=== PATIENT | female | born 1980 | race Two or more races ===

== ENCOUNTER 2021-02-26 14:22 | Emergency (ER) | payer OTHER, SELFPAY ==
--- NOTE | ~2021-02-26 | XR_ITS ---
EXAMINATION: XR CHEST CLINICAL INFORMATION: Covid positive. Shortness of breath. COMPARISON: None TECHNIQUE: Frontal view of the chest was obtained. FINDINGS: The lungs are hyperexpanded and clear of acute process. The heart size and pulmonary vascularity is normal. No gross bony abnormality seen. XR/XR chest 1V IMPRESSION: Unremarkable chest exam.
--- NOTE | ~2021-02-26 | CT_ITS ---
EXAMINATION: CT ANGIOGRAM OF THE CHEST WITH AND WITHOUT CONTRAST (CT PULMONARY ANGIOGRAM FOR PE) CLINICAL INFORMATION: Reason for Exam covid pneumonia? PE? COMPARISON: None TECHNIQUE: Prior to contrast administration, noncontrast localization images were obtained. Subsequently, multidetector volumetric imaging was performed from the thoracic inlet to below the diaphragms following the administration of 71 mL Omnipaque 350 intravenous contrast. No contrast reaction reported Sagittal, coronal, and MIP oblique sagittal reformatted images were obtained on the CT workstation, uploaded to PACS, and reviewed. This CT examination was performed using dose optimization techniques as appropriate, variously including the following: *Automated exposure control *Adjustment of mA and/or kV according to patient size (this includes techniques or standardized protocols for targeted exams where dose is matched to indication/reason for exam; i.e. extremities or head) *Use of iterative reconstruction technique Total exam dose-length product 517 mGy-cm FINDINGS: QUALITY OF STUDY/CONTRAST BOLUS: Satisfactory. PULMONARY ARTERIES: No central or segmental pulmonary emboli. THORACIC AORTA: No aneurysm or dissection. LUNG: Multiple multifocal groundglass opacities are seen scattered throughout the lungs. No solid pulmonary masses are seen. PLEURA: No pleural effusion or pneumothorax. MEDIASTINUM: Normal heart size. No pericardial effusion. Small anterior mediastinal and hilar lymph nodes are present but there is no hilar or mediastinal lymphadenopathy. No evidence of septal bowing or right heart strain. CHEST WALL/AXILLA: No axillary or internal mammary lymphadenopathy. OSSEOUS STRUCTURES: No acute or suspicious osseous abnormality. UPPER ABDOMEN: No reflux of contrast into the hepatic veins to suggest elevated right heart pressures. CT/CT angio chest PE protocol IMPRESSION: 1. No evidence of pulmonary emboli. 2. Commonly reported imaging features of Covid 19 or viral pneumonia are present with multifocal groundglass infiltrates. Other processes such as influenza pneumonia or organizing pneumonia, as can be seen with drug toxicity and connective tissue disease, can cause a similar imaging pattern. VTE: negative
[2021-02-26 14:45] VITALS: BP 133/78; PULSE 117; RESP 20; TEMP 37.6; O2SAT 95; BMI 38.8
--- NOTE | 2021-02-26 15:12 | ECG_ITS ---
Test Reason : SOB Blood Pressure : / mmHG Vent. Rate : 108 BPM Atrial Rate : 108 BPM P-R Int : 144 ms QRS Dur : 084 ms QT Int : 328 ms P-R-T Axes : 037 029 000 degrees QTc Int : 439 ms Sinus tachycardia Cannot rule out Anterior infarct , age undetermined Abnormal ECG No previous ECGs available Referred By: Alfa Gomez Electronically Signed By:Robin Abreu
--- NOTE | 2021-02-26 15:18 | ED.SOB ---
HPI - SOB/Dyspnea General Chief Complaint: Dyspnea Stated Complaint: covid+ diff breathing Time Seen by Provider: 02/26/21 14:50 Source: patient Mode of arrival: ambulatory Limitations: no limitations History of Present Illness HPI Narrative: Patient presents to ED for shortness of breath. Patient recently diagnosed with COVID this past andn the past 3 days presenting with shortness of breath on exertion, diarrhea, coughing, fever, and chills. . Patient states no swelling of lower extremity, calf pain, or coughing up blood. Related Data Previous Rx's Medication Instructions Recorded benzonatate [Tessalon Perles] 100 mg PO TID PRN #15 cap 02/26/21 oxycodone-acetaminophen [Percocet] 1 tab PO TID PRN #9 tab 02/26/21 Allergies Allergy/AdvReac Type Severity Reaction Status Date / Time No Known Allergies Allergy Unverified 07/27/20 16:42 Review of Systems Review of Systems: Yes all other systems are reviewed and are negative Constitutional: Constitutional: Reports as per HPI and Reports no additional constitutional complaints Eyes: Eyes: Reports as per HPI and Reports no additional eye complaints ENT: Reports system reviewed and no additional complaints, except as documented and Reports as per HPI Cardiovascular: Cardiovascular: Reports as per HPI, Reports no additional cardiovascular complaints, Reports chest pain and Reports dyspnea Respiratory: Respiratory: Reports as per HPI, Reports no additional respiratory complaints and Reports dyspnea Gastrointestinal: Gastrointestinal: Reports as per HPI and Reports no additional gastrointestinal complaints Genitourinary: Genitourinary: Reports no additional female genitourinary complaints and Reports as per HPI Musculoskeletal: Musculoskeletal: Reports no additional musculoskeletal complaints and Reports as per HPI Neurologic: Reports system reviewed and no additional complaints, except as documented and Reports as per HPI [facility] Past Medical History Medical History (Updated 02/26/21 @ 18:40 by ЕЛЕНА Randhawa) No known health problems Social History Social History Alcohol intake: current Alcohol intake frequency: holidays/special occasions only Smoking Status: Never smoker Use of substances other than those prescribed or required for medical reasons: No Advance Directives: No Advance Directives Information Provided: No Physical Exam Vital Signs: Vital Signs: Last Vital Signs Temp 99.7 F 02/26/21 14:45 Pulse 107 H 02/26/21 16:10 Resp 16 02/26/21 16:10 BP 142/94 H 02/26/21 16:10 Pulse Ox 97 02/26/21 16:10 Body Mass Index 38.8 Const: General: cooperative, healthy appearing, comfortable, no acute distress, well developed, alert, awake and Physically active Orientation/consciousness: patient oriented x3 HENMT: Head: Yes normal to inspection, Yes No palpable skull fracture present, Yes normocephalic, Yes atraumatic and No abrasion Eyes: General: appearance normal, both eyes and all related structures Neck: Neck: Yes normal visual inspection, Yes full ROM, Yes no lymphadenopathy, Yes no meningeal signs, Yes trachea midline, Yes supple and No tender Chest: Chest palpation & inspection: normal inspection of the chest and normal palpation of entire chest wall Resp: Effort & Inspection: normal respiratory effort and able to speak in complete sentences Auscultation: clear to auscultation bilaterally Cardio: Jugular venous distension: no JVD Heart sounds: S1 normal heart sound present and S2 normal heart sound present GI: Inspection: Yes normal to inspection and No abdominal wall ecchymosis Palpation (GI): Soft to palpation, not firm, nontender, no guarding and not rigid : General: No CVA tenderness and Yes no CVA tenderness Back/Spine/Pelvis: Back: no CVA tenderness, No CVA tenderness and No back tenderness Skin: General skin exam: no rashes or lesions noted and elasticity normal Neuro: General: patient oriented x3, no meningeal signs and CN's II-XI intact bilaterally Cranial nerves: Yes CN's II-XII intact bilaterally Extrem: Other: Lower extremity negative for calf pain, swelling, redness for General: Yes normal to inspection and Yes full ROM Psych: Appearance: grossly normal, well kempt and not disheveled Course Course Course Narrative: Patient will have medical evaluation which included lab work troponin and D-dimer to make sure she is not risk of any COVID myocarditis, CA, or PE. Reevaluation(s) Reevaluation #1: Patient's troponin negative after having shortness of breath for 3 days with other viral constitutional symptoms.. Patient's BNP negative. On oxygen saturation ambulation trial as per tech patient's O2 saturation was 95%. He states patient informed the main complaint was the cough. Patient's D-dimer elevated will send for CT to rule out COVID PE. Chest x-ray no pneumonia. EKG shows sinus tach. Albuterol inhaler pump given for patient. Reevaluation #2: Patient is not in any distress. Awaiting chest CT results. Signed out NUTRITION DIRECTOR Marissa MDM - SOB/Dyspnea MDM Narrative Medical decision making narrative: COVID Lab Data Result diagrams: 02/26/21 16:02 02/26/21 16:02 Labs: Lab Results 02/26/21 02/26/21 02/26/21 Range/Units 16:02 16:02 16:02 WBC 5.7 (4.8-10.8) X10*3/uL RBC 5.20 (4.20-5.50) X10*6/uL Hgb 14.5 (12.0-16.0) g/dl Hct 44.9 (37-47) % MCV 86.3 (80-98) fL MCH 27.9 (27.0-33.0) pg MCHC 32.3 (31.0-35.0) g/dl RDW 12.7 (11.0-16.0) % Plt Count 258 (160-400) X10*3/uL MPV 9.7 (9.4-12.3) fL Immature Gran % (Auto) 0.3 (0.0-0.4) % Neut % (Auto) 69.7 (45-73) % Lymph % (Auto) 22.7 (20-40) % [place] % (Auto) 7.3 (2-11) % Eos % (Auto) 0.0 (0-4) % Baso % (Auto) 0.0 (0-2) % Lymph # (Auto) 1.3 (1.2-4.9) X10*3/uL [place] # (Auto) 0.4 (0.1-1.2) X10*3/uL Eos # (Auto) 0.0 (0.0-0.4) X10*3/uL Baso # (Auto) 0.0 (0.0-0.2) X10*3/uL Abs Immat Gran (auto) 0.02 (0.00-0.03) X10*3/uL Absolute Neuts (auto) 4.0 (2.0-8.3) X10*3/uL Absolute Nucleated RBC 0.000 (0.0-0.012) X10*3/uL Nucleated RBC % (auto) 0.0 (0.0-0.2) /100WBC PT 15.2 H (10.8-13.0) SEC INR 1.3 H (0.9-1.1) APTT 30.4 (24.1-38.0) SEC D-Dimer 283 NG/ML Sodium (135-145) mmol/L Potassium (3.3-5.1) mmol/L Chloride (96-108) mmol/L Carbon Dioxide (22-29) mmol/L Anion Gap (12-20) BUN (9-16) mg/dL Creatinine (0.5-1.4) mg/dL Estim Creat Clear Calc Estimated GFR Random Glucose (60-115) mg/dL Calcium (8.4-10.2) mg/dL Ferritin (10-122) ng/mL Total Bilirubin (0.0-1.0) mg/dL AST (5-31) U/L ALT (0-31) U/L Alkaline Phosphatase (39-117) U/L Lactate Dehydrogenase (122-220) U/L Troponin I High Sens (<3.5-17.0) ng/L B-Natriuretic Peptide (<100) pg/mL Total Protein (6.5-8.0) g/dL Albumin (3.5-5.0) g/dL Procalcitonin ng/mL Beta HCG, Quant mIU/mL Coronavirus (PCR) POSITIVE A (Negative) Influenza Type A (PCR) NEGATIVE (Negative) Influenza Type B (PCR) NEGATIVE (Negative) RSV RNA Qual (PCR) NEGATIVE (Negative) 02/26/21 02/26/21 02/26/21 Range/Units 16:02 16:02 16:02 WBC (4.8-10.8) X10*3/uL RBC (4.20-5.50) X10*6/uL Hgb (12.0-16.0) g/dl Hct (37-47) % MCV (80-98) fL MCH (27.0-33.0) pg MCHC (31.0-35.0) g/dl RDW (11.0-16.0) % Plt Count (160-400) X10*3/uL MPV (9.4-12.3) fL Immature Gran % (Auto) (0.0-0.4) % Neut % (Auto) (45-73) % Lymph % (Auto) (20-40) % [place] % (Auto) (2-11) % Eos % (Auto) (0-4) % Baso % (Auto) (0-2) % Lymph # (Auto) (1.2-4.9) X10*3/uL [place] # (Auto) (0.1-1.2) X10*3/uL Eos # (Auto) (0.0-0.4) X10*3/uL Baso # (Auto) (0.0-0.2) X10*3/uL Abs Immat Gran (auto) (0.00-0.03) X10*3/uL Absolute Neuts (auto) (2.0-8.3) X10*3/uL Absolute Nucleated RBC (0.0-0.012) X10*3/uL Nucleated RBC % (auto) (0.0-0.2) /100WBC PT (10.8-13.0) SEC INR (0.9-1.1) APTT (24.1-38.0) SEC D-Dimer NG/ML Sodium 135 (135-145) mmol/L Potassium 3.7 (3.3-5.1) mmol/L Chloride 102 (96-108) mmol/L Carbon Dioxide 23 (22-29) mmol/L Anion Gap 14 (12-20) BUN 6 L (9-16) mg/dL Creatinine 0.84 (0.5-1.4) mg/dL Estim Creat Clear Calc 116.3 Estimated GFR > 60 Random Glucose 100 (60-115) mg/dL Calcium 8.6 (8.4-10.2) mg/dL Ferritin 105 (10-122) ng/mL Total Bilirubin 0.6 (0.0-1.0) mg/dL AST 28 (5-31) U/L ALT 24 (0-31) U/L Alkaline Phosphatase 73 (39-117) U/L Lactate Dehydrogenase 238 H (122-220) U/L Troponin I High Sens < 3.5 (<3.5-17.0) ng/L B-Natriuretic Peptide < 10 (<100) pg/mL Total Protein 8.4 H (6.5-8.0) g/dL Albumin 4.4 (3.5-5.0) g/dL Procalcitonin ng/mL Beta HCG, Quant < 2 mIU/mL Coronavirus (PCR) (Negative) Influenza Type A (PCR) (Negative) Influenza Type B (PCR) (Negative) RSV RNA Qual (PCR) (Negative) 02/26/21 Range/Units 16:02 WBC (4.8-10.8) X10*3/uL RBC (4.20-5.50) X10*6/uL Hgb (12.0-16.0) g/dl Hct (37-47) % MCV (80-98) fL MCH (27.0-33.0) pg MCHC (31.0-35.0) g/dl RDW (11.0-16.0) % Plt Count (160-400) X10*3/uL MPV (9.4-12.3) fL Immature Gran % (Auto) (0.0-0.4) % Neut % (Auto) (45-73) % Lymph % (Auto) (20-40) % [place] % (Auto) (2-11) % Eos % (Auto) (0-4) % Baso % (Auto) (0-2) % Lymph # (Auto) (1.2-4.9) X10*3/uL [place] # (Auto) (0.1-1.2) X10*3/uL Eos # (Auto) (0.0-0.4) X10*3/uL Baso # (Auto) (0.0-0.2) X10*3/uL Abs Immat Gran (auto) (0.00-0.03) X10*3/uL Absolute Neuts (auto) (2.0-8.3) X10*3/uL Absolute Nucleated RBC (0.0-0.012) X10*3/uL Nucleated RBC % (auto) (0.0-0.2) /100WBC PT (10.8-13.0) SEC INR (0.9-1.1) APTT (24.1-38.0) SEC D-Dimer NG/ML Sodium (135-145) mmol/L Potassium (3.3-5.1) mmol/L Chloride (96-108) mmol/L Carbon Dioxide (22-29) mmol/L Anion Gap (12-20) BUN (9-16) mg/dL Creatinine (0.5-1.4) mg/dL Estim Creat Clear Calc Estimated GFR Random Glucose (60-115) mg/dL Calcium (8.4-10.2) mg/dL Ferritin (10-122) ng/mL Total Bilirubin (0.0-1.0) mg/dL AST (5-31) U/L ALT (0-31) U/L Alkaline Phosphatase (39-117) U/L Lactate Dehydrogenase (122-220) U/L Troponin I High Sens (<3.5-17.0) ng/L B-Natriuretic Peptide (<100) pg/mL Total Protein (6.5-8.0) g/dL Albumin (3.5-5.0) g/dL Procalcitonin 0.02 ng/mL Beta HCG, Quant mIU/mL Coronavirus (PCR) (Negative) Influenza Type A (PCR) (Negative) Influenza Type B (PCR) (Negative) RSV RNA Qual (PCR) (Negative) ECG Data Interpretation: Sinus tachycardia. Negative STEMI. Ventricular rate 108. Pr interval 144. QRS 84. QTC 439. Discharge Plan Discharge Clinical Impression: COVID-19 Patient Disposition: Home, Self-Care Instructions: COVID-19 (Coronavirus Disease 2019) (ED) Additional Instructions: Return to the ED immediately for chest pain, shortness of breath, swelling of lower extremities, coughing up blood, calf pain, weakness, or any other concerning symptoms. Continue using albuterol inhaler given to you by nurse 2 puffs every 4-6 hours as needed. Prescriptions: New benzonatate [Tessalon Perles] 100 mg capsule 100 mg PO TID PRN (Reason: cough) Qty: 15 RF: 0 oxycodone-acetaminophen [Percocet] 5-325 mg tablet 1 tab PO TID PRN (Reason: cough) Qty: 9 RF: 0 Referrals: Nirmal Borjas MD [Primary Care Provider] - 2 days (COVID) Stand Alone Forms: Work/School Release
[2021-02-26] MEDS: 0.9 % Sodium Chloride 1,000 ML 999 ML IV (16:07)
[2021-02-26 16:10] VITALS: BP 142/94; PULSE 107; RESP 16; O2SAT 97
[2021-02-26 16:10] LABS: MANUAL DIFF FLAG NO
[2021-02-26 16:17] LABS: Hematocrit 44.9 % (37-47); Hemoglobin 14.5 g/dl (12.0-16.0); Imm Gran Abs Auto 0.02 X10*3/uL (0.00-0.03); Imm Gran Pct Auto 0.3 % (0.0-0.4); Lymphocytes Absolute Auto 1.3 X10*3/uL (1.2-4.9); Lymphocytes Percent Auto 22.7 % (20-40); Mean Corpuscular HGB Conc 32.3 g/dl (31.0-35.0); Mean Corpuscular Hemoglobin 27.9 pg (27.0-33.0); Mean Corpuscular Volume 86.3 fL (80-98); Mean Platelet Volume 9.7 fL (9.4-12.3); Monocytes Absolute Auto 0.4 X10*3/uL (0.1-1.2); Monocytes Percent Auto 7.3 % (2-11); Neutrophils Percent Auto 69.7 % (45-73); Platelet Count 258 X10*3/uL (160-400); Red Cell Distribution Width 12.7 % (11.0-16.0); White Blood Count 5.7 X10*3/uL (4.8-10.8)
[2021-02-26 16:19] LABS: INTERNATIONAL NORM RATIO 1.3 (0.9-1.1); Prothrombin Time 15.2 SEC (10.8-13.0)
[2021-02-26 16:22] LABS: D Dimer 283 NG/ML; Partial Thromboplastin Time 30.4 SEC (24.1-38.0)
[2021-02-26 16:35] LABS: Lactate Dehydrogenase 238 U/L (122-220)
[2021-02-26 16:40] LABS: Alanine Aminotransferase 24 U/L (0-31); Albumin Level 4.4 g/dL (3.5-5.0); Alkaline Phosphatase 73 U/L (39-117); Anion Gap 14 (12-20); Aspartate Amino Transferase 28 U/L (5-31); Bilirubin Total 0.6 mg/dL (0.0-1.0); Blood Urea Nitrogen 6 mg/dL (9-16); Calcium 8.6 mg/dL (8.4-10.2); Carbon Dioxide 23 mmol/L (22-29); Chloride 102 mmol/L (96-108); Creatinine Clr Calc Pharmacy 116.3; Estimated Glomerular Filt Rate > 60; Glucose Random 100 mg/dL (60-115); Potassium 3.7 mmol/L (3.3-5.1); Sodium 135 mmol/L (135-145); Total Protein 8.4 g/dL (6.5-8.0)
[2021-02-26 16:46] LABS: B Type Natriuretic Peptide < 10 pg/mL (<100); Troponin-I High Sensitivity < 3.5 ng/L (<3.5-17.0)
[2021-02-26 16:56] LABS: Ferritin 105 ng/mL (10-122)
[2021-02-26 16:57] LABS: Procalcitonin 0.02 ng/mL
[2021-02-26 16:58] LABS: Influenza A PCR NEGATIVE (Negative); Influenza B PCR NEGATIVE (Negative); Resp Syncy Virus RNA Qual PCR NEGATIVE (Negative); SARS COV2 PCR INHOUSE POSITIVE (Negative)
[2021-02-26 17:16] LABS: HCG Quantitative < 2 mIU/mL
[2021-02-26] MEDS: Albuterol Sulfate 90 MCG 8 GM INHALER 4 PUFF INHALE (17:46)
[2021-02-26] MEDS: guaiFEN/Codeine SF 200/20/10ML 10 ML LIQUID PO (17:46)
[2021-02-26] MEDS: iohexoL 350 MG/ML 100 ML INFUS..BTL IV (19:25)
[2021-02-26 21:30] VITALS: BP 135/86; PULSE 99; RESP 18; O2SAT 97
== END 2021-02-26 21:51 | disposition home or self-care (01) ==
PROVIDERS: Physician Assistant; Emergency Provider Emergency Medicine; PCP Internal Medicine
DX: U07.1 COVID-19 (principal); R06.00 Dyspnea, unspecified; Z79.899 Other long term (current) drug therapy
CPT/HCPCS: 0241U; 36415; 71045; 71275; 80053; 82728; 83615; 83880; 84145; 84484; 84702; 85025; 85379; 85610; 85730; 93005; 96360; 99285; Q9967

== ENCOUNTER 2021-03-01 13:55 | Inpatient (IN) | payer OTHER, SELFPAY ==
--- NOTE | ~2021-03-01 | XR_ITS ---
EXAMINATION: XR CHEST CLINICAL INFORMATION: Covid Positive. Evaluate for pneumonia COMPARISON: CTA chest 02/26/2021 TECHNIQUE: Frontal view of the chest was obtained. FINDINGS: The lungs are hypoexpanded expanded with bilateral parahilar patchy opacities likely interstitial pneumonitis or developing infiltrates. These are new findings compared to previous study 02/26/2021 XR/XR chest 1V IMPRESSION: Hypoexpanded lungs with diffuse bilateral parahilar patchy opacities likely interstitial pneumonitis or developing infiltrates.
[2021-03-01 14:07] VITALS: BP 142/72; PULSE 106; RESP 18; TEMP 37.7; O2SAT 95; BMI 40.3
--- NOTE | 2021-03-01 14:18 | ED.GENADULT ---
HPI - General Adult General Chief complaint: Dyspnea Stated complaint: diff breathing - covid+ Time Seen by Provider: 03/01/21 14:10 Related Data Previous Rx's Medication Instructions Recorded benzonatate [Tessalon Perles] 100 mg PO TID PRN #15 cap 02/26/21 oxycodone-acetaminophen [Percocet] 1 tab PO TID PRN #9 tab 02/26/21 Allergies Allergy/AdvReac Type Severity Reaction Status Date / Time No Known Allergies Allergy Unverified 07/27/20 16:42 [facility] Past Medical History Medical History (Updated 02/26/21 @ 18:40 by ЕЛЕНА Randhawa) No known health problems Social History Social History Alcohol intake: current Alcohol intake frequency: holidays/special occasions only Smoking Status: Never smoker Physical Exam Vital Signs: Vital Signs: Last Vital Signs Temp 99.9 F 03/01/21 14:07 Pulse 106 H 03/01/21 14:07 Resp 18 03/01/21 14:07 BP 142/72 H 03/01/21 14:07 Pulse Ox 95 03/01/21 14:07 Body Mass Index 40.3 Course Course Course Narrative: 1415-This is a rapid medical exam. Patient was diagnosed with COVID 9 days ago. Continued SOb, cough, CHATTERJEE. Will check CXR. Deferred additional HPI, ROS and PE to primary provider. Discharge Plan Discharge Prescriptions: No Action benzonatate [Tessalon Perles] 100 mg capsule 100 mg PO TID PRN (Reason: cough) Qty: 15 RF: 0 oxycodone-acetaminophen [Percocet] 5-325 mg tablet 1 tab PO TID PRN (Reason: cough) Qty: 9 RF: 0
--- NOTE | 2021-03-01 20:58 | ED.SOB ---
HPI - SOB/Dyspnea General Chief Complaint: Dyspnea Stated Complaint: diff breathing - covid+ Time Seen by Provider: 03/01/21 14:10 Source: patient Mode of arrival: ambulatory Limitations: no limitations History of Present Illness HPI Narrative: Patient COVID positive for last 1 week was seen here on 02/26 for shortness of breath head CTA done which showed ground-glass infiltrate comes back for increased shortness of breath saturating 86% at home at room air was not given any steroids patient been coughing frequently no fever or chills MD elicited complaint: shortness of breath and cough Related Data Previous Rx's Medication Instructions Recorded benzonatate [Tessalon Perles] 100 mg PO TID PRN #15 cap 02/26/21 oxycodone-acetaminophen [Percocet] 1 tab PO TID PRN #9 tab 02/26/21 Allergies Allergy/AdvReac Type Severity Reaction Status Date / Time No Known Allergies Allergy Unverified 07/27/20 16:42 Review of Systems Review of Systems: Constitutional : No Weight loss, No Fever, No Chills ENT/Mouth : No sore throat, No Rhinorrhea Eyes: No Eye Pain, No Swelling Cardiovascular : No Chest Pain, no palpitations Respiratory : + Cough, No Sputum, + shortness of breath Gastrointestinal : no Nausea, No Vomiting, No Diarrhea, No abdominal Pain, no black stools Genitourinary : No Dysuria, No Urinary Frequency Musculoskeletal : No joint pain, No Myalgias, No Joint Swelling Skin : No Skin Lesions, No rash Neuro : No Weakness, No Numbness, No Dizziness, No Headache Psych : No Anxiety/Panic, No Depression Heme/Lymph: No Bruising, No Lymphadenopathy Endocrine : No Polyuria, No Polydipsia All other systems reviewed and are negative [facility] Past Medical History Medical History No known health problems Social History Social History Alcohol intake: current Alcohol intake frequency: holidays/special occasions only Smoking Status: Never smoker Advance Directives: No Advance Directives Information Provided: No Physical Exam Vital Signs: Vital Signs: Last Vital Signs Temp 99.9 F 03/01/21 14:07 Pulse 100 03/01/21 23:11 Resp 20 03/01/21 23:11 BP 124/67 03/01/21 23:11 Pulse Ox 95 03/01/21 23:11 Body Mass Index 40.3 Appearance: Alert. Oriented X3. Moderate respiratory distress with frequent cough Eyes: Pupils equal, round and reactive to light. ENT: Pharynx normal. Neck: Normal inspection. Neck supple. CVS: Normal heart rate and rhythm. Pulses normal. Respiratory: Moderate respiratory distress with frequent cough bilateral crackles diffuse prolonged expiration no wheezing Abdomen: Soft and nontender. Bowel sounds are present, no mass palpable, no CVA tenderness Skin: Skin warm and dry. Normal skin color. Normal skin turgor. Extremities: No lower extremity edema. No calf tenderness Neuro: Oriented X 3. No motor deficit. No sensory deficit. MDM - SOB/Dyspnea MDM Narrative Medical decision making narrative: Patient's COVID-19 infection with bilateral lung infiltrate with hypoxia at home of 86% patient feels very weak in the ER also at rest saturating 91% coughing very often, will admit patient for oxygen therapy and IV steroids Lab Data Attestation: I reviewed the patient's lab results. Result diagrams: 03/01/21 21:25 03/01/21 21:25 Labs: Lab Results 03/01/21 03/01/21 03/01/21 Range/Units 21:25 21:25 21:25 WBC 8.0 (4.8-10.8) X10*3/uL RBC 4.53 (4.20-5.50) X10*6/uL Hgb 12.7 (12.0-16.0) g/dl Hct 39.6 (37-47) % MCV 87.4 (80-98) fL MCH 28.0 (27.0-33.0) pg MCHC 32.1 (31.0-35.0) g/dl RDW 13.2 (11.0-16.0) % Plt Count 300 (160-400) X10*3/uL MPV 9.6 (9.4-12.3) fL Immature Gran % (Auto) 0.6 H (0.0-0.4) % Neut % (Auto) 72.9 (45-73) % Lymph % (Auto) 18.9 L (20-40) % [place] % (Auto) 7.5 (2-11) % Eos % (Auto) 0.0 (0-4) % Baso % (Auto) 0.1 (0-2) % Lymph # (Auto) 1.5 (1.2-4.9) X10*3/uL [place] # (Auto) 0.6 (0.1-1.2) X10*3/uL Eos # (Auto) 0.0 (0.0-0.4) X10*3/uL Baso # (Auto) 0.0 (0.0-0.2) X10*3/uL Abs Immat Gran (auto) 0.05 H (0.00-0.03) X10*3/uL Absolute Neuts (auto) 5.8 (2.0-8.3) X10*3/uL Absolute Nucleated RBC 0.000 (0.0-0.012) X10*3/uL Nucleated RBC % (auto) 0.0 (0.0-0.2) /100WBC PT 15.2 H (10.8-13.0) SEC INR 1.3 H (0.9-1.1) APTT 27.4 (24.1-38.0) SEC D-Dimer 359 NG/ML Sodium (135-145) mmol/L Potassium (3.3-5.1) mmol/L Chloride (96-108) mmol/L Carbon Dioxide (22-29) mmol/L Anion Gap (12-20) BUN (9-16) mg/dL Creatinine (0.5-1.4) mg/dL Estim Creat Clear Calc Estimated GFR Random Glucose (60-115) mg/dL Lactic Acid (0.5-2.0) mmol/L Calcium (8.4-10.2) mg/dL Ferritin 133 H (10-122) ng/mL Total Bilirubin (0.0-1.0) mg/dL Direct Bilirubin (0.0-0.5) mg/dL AST (5-31) U/L ALT (0-31) U/L Alkaline Phosphatase (39-117) U/L Lactate Dehydrogenase 224 H (122-220) U/L C-Reactive Protein (< or = 0.50) mg/dL Total Protein (6.5-8.0) g/dL Albumin (3.5-5.0) g/dL 03/01/21 03/01/21 Range/Units 21:25 21:25 WBC (4.8-10.8) X10*3/uL RBC (4.20-5.50) X10*6/uL Hgb (12.0-16.0) g/dl Hct (37-47) % MCV (80-98) fL MCH (27.0-33.0) pg MCHC (31.0-35.0) g/dl RDW (11.0-16.0) % Plt Count (160-400) X10*3/uL MPV (9.4-12.3) fL Immature Gran % (Auto) (0.0-0.4) % Neut % (Auto) (45-73) % Lymph % (Auto) (20-40) % [place] % (Auto) (2-11) % Eos % (Auto) (0-4) % Baso % (Auto) (0-2) % Lymph # (Auto) (1.2-4.9) X10*3/uL [place] # (Auto) (0.1-1.2) X10*3/uL Eos # (Auto) (0.0-0.4) X10*3/uL Baso # (Auto) (0.0-0.2) X10*3/uL Abs Immat Gran (auto) (0.00-0.03) X10*3/uL Absolute Neuts (auto) (2.0-8.3) X10*3/uL Absolute Nucleated RBC (0.0-0.012) X10*3/uL Nucleated RBC % (auto) (0.0-0.2) /100WBC PT (10.8-13.0) SEC INR (0.9-1.1) APTT (24.1-38.0) SEC D-Dimer NG/ML Sodium 139 (135-145) mmol/L Potassium 3.3 (3.3-5.1) mmol/L Chloride 101 (96-108) mmol/L Carbon Dioxide 26 (22-29) mmol/L Anion Gap 15 (12-20) BUN 8 L (9-16) mg/dL Creatinine 0.76 (0.5-1.4) mg/dL Estim Creat Clear Calc 126.9 Estimated GFR > 60 Random Glucose 90 (60-115) mg/dL Lactic Acid 1.4 (0.5-2.0) mmol/L Calcium 8.2 L (8.4-10.2) mg/dL Ferritin (10-122) ng/mL Total Bilirubin 0.8 (0.0-1.0) mg/dL Direct Bilirubin 0.5 (0.0-0.5) mg/dL AST 20 (5-31) U/L ALT 17 (0-31) U/L Alkaline Phosphatase 61 (39-117) U/L Lactate Dehydrogenase (122-220) U/L C-Reactive Protein 10.33 H (< or = 0.50) mg/dL Total Protein 7.8 (6.5-8.0) g/dL Albumin 4.0 (3.5-5.0) g/dL Discharge Plan Discharge Clinical Impression: COVID-19, Hypoxia Patient Disposition: Admitted As Inpatient
[2021-03-01] MEDS: Albuterol Sulfate 90 MCG 8 GM INHALER 4 PUFF INHALE (21:05)
[2021-03-01 21:35] LABS: MANUAL DIFF FLAG NO
[2021-03-01] MEDS: cefTRIAXone sodium 1 GM in 0.9 % Sodium Chloride 50 ML IV (21:49)
[2021-03-01 21:51] LABS: Basophils Percent Auto 0.1 % (0-2); Hematocrit 39.6 % (37-47); Hemoglobin 12.7 g/dl (12.0-16.0); Imm Gran Abs Auto 0.05 X10*3/uL (0.00-0.03); Imm Gran Pct Auto 0.6 % (0.0-0.4); Lymphocytes Absolute Auto 1.5 X10*3/uL (1.2-4.9); Lymphocytes Percent Auto 18.9 % (20-40); Mean Corpuscular HGB Conc 32.1 g/dl (31.0-35.0); Mean Corpuscular Volume 87.4 fL (80-98); Mean Platelet Volume 9.6 fL (9.4-12.3); Monocytes Absolute Auto 0.6 X10*3/uL (0.1-1.2); Monocytes Percent Auto 7.5 % (2-11); Neutrophils Absolute Auto 5.8 X10*3/uL (2.0-8.3); Neutrophils Percent Auto 72.9 % (45-73); Platelet Count 300 X10*3/uL (160-400); Red Blood Count 4.53 X10*6/uL (4.20-5.50); Red Cell Distribution Width 13.2 % (11.0-16.0)
[2021-03-01 21:56] LABS: Lactic Acid 1.4 mmol/L (0.5-2.0)
[2021-03-01 22:00] LABS: D Dimer 359 NG/ML
[2021-03-01 22:01] LABS: Alanine Aminotransferase 17 U/L (0-31); Alkaline Phosphatase 61 U/L (39-117); Anion Gap 15 (12-20); Aspartate Amino Transferase 20 U/L (5-31); Bilirubin Direct 0.5 mg/dL (0.0-0.5); Bilirubin Total 0.8 mg/dL (0.0-1.0); Blood Urea Nitrogen 8 mg/dL (9-16); Calcium 8.2 mg/dL (8.4-10.2); Carbon Dioxide 26 mmol/L (22-29); Chloride 101 mmol/L (96-108); Creatinine Clr Calc Pharmacy 126.9; Estimated Glomerular Filt Rate > 60; Glucose Random 90 mg/dL (60-115); Potassium 3.3 mmol/L (3.3-5.1); Sodium 139 mmol/L (135-145); Total Protein 7.8 g/dL (6.5-8.0)
[2021-03-01 22:06] LABS: Lactate Dehydrogenase 224 U/L (122-220)
[2021-03-01 22:12] LABS: INTERNATIONAL NORM RATIO 1.3 (0.9-1.1); Prothrombin Time 15.2 SEC (10.8-13.0)
[2021-03-01 22:14] LABS: Partial Thromboplastin Time 27.4 SEC (24.1-38.0)
[2021-03-01 22:22] LABS: Ferritin 133 ng/mL (10-122)
[2021-03-01 22:52] LABS: C Reactive Protein 10.33 mg/dL (< or = 0.50)
[2021-03-01 23:11] VITALS: BP 124/67; PULSE 100; RESP 20; O2SAT 95
[2021-03-01] MEDS: Azithromycin 500 MG in 0.9 % Sodium Chloride 250 ML 125 MG IV (23:12)
[2021-03-02] VITALS (8 sets, daily range): BP systolic 115–128; BP diastolic 69–85; PULSE 70–96; RESP 16–25; TEMP 36.5–36.8; O2SAT 89–96
[2021-03-02] MEDS: 0.9 % Sodium Chloride Flush 3 ML SYRINGE IVFLUSH ×3 (04:36→17:32)
--- NOTE | 2021-03-02 06:27 | P.HPHOSP_ITS ---
History of Present Illness Date of Service: 03/02/21 Chief Complaint: Shortness of breath 40-year-old female with no significant past medical history who presents to the hospital with complaints of shortness of breath, cough, chills for the past 1 week. She was seen in the hospital on the 26 of February and was diagnosed with COVID-19 and sent home as she was not hypoxic or requiring any oxygen. Patient also reporting sputum production, nausea and vomiting, diarrhea, abdominal discomfort. Patient reports her sister was recently diagnosed COVID-19 and she had contact with her. Denies any chest pain, no palpitations, no urinary symptoms and no lower extremity edema. No numbness or going or weakness. To the ED hemodynamically stable with a temp of 99.9?, heart rate of 106, respiratory rate of 18, blood pressure of 142/72, satting 86% on room air. Patient currently on 6 L of oxygen satting 93%. Labs are significant for 8, hemoglobin 12.7, PT of 15.2, INR of 1.3, sodium of 139, potassium of 3.3, BUN of 8, creatinine of 0.76, ferritin of 133, LDH of 244, S are P of 10.33, COVID-19 positive, Chest x-ray shows hypoexpanded lungs with diffuse bilateral perihilar patchy opacities likely interstitial pneumonitis or developing infiltrates Review of Systems Review of Systems: Yes all other systems are reviewed and are negative [facility] Medical History No known health problems Social History Alcohol intake: current Alcohol intake frequency: holidays/special occasions only Smoking Status: Never smoker Advance Directives: No Advance Directives Information Provided: No Meds Allergies Allergy/AdvReac Type Severity Reaction Status Date / Time No Known Allergies Allergy Unverified 07/27/20 16:42 Active Medications: Current Medications Generic Name Dose Route Start Last Admin Trade Name Freq PRN Reason Stop Dose Admin Acetaminophen 650 mg 03/02/21 04:35 Acetaminophen 325 Mg Tablet PO Q6H PRN Pain, Mild (Pain Scale 1-3) Dexamethasone Sodium Phosphate 6 mg 03/02/21 21:00 Dexamethasone Sod Phosphate 4 Mg/Ml Vial IVPUSH Q24H SHY Docusate Sodium 100 mg 04/23/21 04:35 Docusate Sodium 100 Mg Capsule PO DAILY PRN Constipation Ondansetron HCl 4 mg 03/02/21 04:35 Ondansetron Hcl 4 Mg/2 Ml Vial IVPUSH Q8H PRN Nausea and Vomiting Sodium Chloride 3 ml 03/02/21 04:35 03/02/21 04:36 0.9 % Sodium Chloride Flush 3 Ml Syringe IVFLUSH 3 ml QSHIFT [facility] Administration Home Medications Medication Instructions Recorded Confirmed Last Taken Type trazodone 1 tab PO BEDTIME 03/02/21 03/02/21 Unknown History Physical Exam Vital Signs and Narrative: Vital Signs: Last Vital Signs Temp 98.2 F 03/02/21 05:38 Pulse 96 03/02/21 05:38 Resp 25 H 03/02/21 05:38 BP 115/75 03/02/21 05:38 Pulse Ox 93 03/02/21 05:38 Body Mass Index 40.3 Const: General: cooperative and no acute distress Orientation/consciousness: patient oriented x3 Eyes: General: appearance normal, both eyes and all related structures Resp: Effort & Inspection: normal respiratory effort and able to speak in complete sentences Cardio: Rate: regular rate Rhythm: regular rhythm GI: Palpation (GI): Soft to palpation Auscultation: normal bowel sounds Skin: General skin exam: no rashes or lesions noted Neuro: General: patient oriented x3 Cognition (Neuro): normal cognition Extrem: General: Yes normal to inspection and Yes no pedal edema Results Labs CBC and Chem 7: 03/01/21 21:25 03/01/21 21:25 Labs: Laboratory Results - last 24 hr 03/01/21 03/01/21 03/01/21 21:25 21:25 21:25 MCV 87.4 MCH 28.0 MCHC 32.1 RDW 13.2 Plt Count 300 MPV 9.6 Immature Gran % (Auto) 0.6 H Neut % (Auto) 72.9 Lymph % (Auto) 18.9 L Williams % (Auto) 7.5 Eos % (Auto) 0.0 Baso % (Auto) 0.1 Lymph # (Auto) 1.5 Williams # (Auto) 0.6 Eos # (Auto) 0.0 Baso # (Auto) 0.0 Abs Immat Gran (auto) 0.05 H Absolute Neuts (auto) 5.8 Absolute Nucleated RBC 0.000 Nucleated RBC % (auto) 0.0 PT 15.2 H INR 1.3 H APTT 27.4 D-Dimer 359 Anion Gap Estim Creat Clear Calc Estimated GFR Random Glucose Lactic Acid Calcium Ferritin 133 H Total Bilirubin Direct Bilirubin AST ALT Alkaline Phosphatase Lactate Dehydrogenase 224 H C-Reactive Protein Total Protein Albumin 03/01/21 03/01/21 21:25 21:25 MCV MCH MCHC RDW Plt Count MPV Immature Gran % (Auto) Neut % (Auto) Lymph % (Auto) Williams % (Auto) Eos % (Auto) Baso % (Auto) Lymph # (Auto) Williams # (Auto) Eos # (Auto) Baso # (Auto) Abs Immat Gran (auto) Absolute Neuts (auto) Absolute Nucleated RBC Nucleated RBC % (auto) PT INR APTT D-Dimer Anion Gap 15 Estim Creat Clear Calc 126.9 Estimated GFR > 60 Random Glucose 90 Lactic Acid 1.4 Calcium 8.2 L Ferritin Total Bilirubin 0.8 Direct Bilirubin 0.5 AST 20 ALT 17 Alkaline Phosphatase 61 Lactate Dehydrogenase C-Reactive Protein 10.33 H Total Protein 7.8 Albumin 4.0 Imaging Radiologist's Impressions: Impressions Chest X-Ray 03/01/21 14:10 IMPRESSION: Hypoexpanded lungs with diffuse bilateral parahilar patchy opacities likely interstitial pneumonitis or developing infiltrates. Assessment and Plan (1) Acute respiratory failure with hypoxia: Status: Acute (2) Pneumonia due to COVID-19 virus: Status: Acute 40-year-old female with no past medical history presents to the hospital with complaints of shortness of breath. Recently diagnosed with COVID-19 pneumonia # acute hypoxic respiratory failure - secondary to COVID-19 pneumonia - will treat with Decadron, DuoNeb p.r.n. - consult ID for any further or alternative treatment - monitor respiratory status and deterioration and increasing oxygen requirement # pneumonia secondary to COVID-19 - will start on Decadron - DuoNeb p.r.n. - infectious disease consult DVT prophylaxis: Heparin subQ
[2021-03-02 06:51] LABS: Anion Gap 15 (12-20); Blood Urea Nitrogen 8 mg/dL (9-16); Calcium 8.2 mg/dL (8.4-10.2); Carbon Dioxide 25 mmol/L (22-29); Chloride 103 mmol/L (96-108); Creatinine Clr Calc Pharmacy 130.4; Estimated Glomerular Filt Rate > 60; Glucose Random 140 mg/dL (60-115); Potassium 3.7 mmol/L (3.3-5.1); Sodium 139 mmol/L (135-145)
[2021-03-02 07:05] LABS: Hematocrit 36.3 % (37-47); Hemoglobin 11.7 g/dl (12.0-16.0); Imm Gran Abs Auto 0.03 X10*3/uL (0.00-0.03); Imm Gran Pct Auto 0.6 % (0.0-0.4); Lymphocytes Absolute Auto 0.6 X10*3/uL (1.2-4.9); Lymphocytes Percent Auto 11.1 % (20-40); MANUAL DIFF FLAG SCAN; Mean Corpuscular HGB Conc 32.2 g/dl (31.0-35.0); Mean Corpuscular Hemoglobin 28.1 pg (27.0-33.0); Mean Corpuscular Volume 87.1 fL (80-98); Mean Platelet Volume 9.4 fL (9.4-12.3); Monocytes Absolute Auto 0.1 X10*3/uL (0.1-1.2); Monocytes Percent Auto 2.7 % (2-11); Neutrophils Absolute Auto 4.4 X10*3/uL (2.0-8.3); Neutrophils Percent Auto 85.6 % (45-73); Platelet Count 301 X10*3/uL (160-400); Red Blood Count 4.17 X10*6/uL (4.20-5.50); SCAN SMEAR FLAG 1; White Blood Count 5.1 X10*3/uL (4.8-10.8)
[2021-03-02 07:32] LABS: SLIDE REVIEW VERIFIED
--- NOTE | 2021-03-02 10:19 | MHC.CM.PN ---
Attempted to meet with patient in regards to discharge planning. Patient is currently sleeping. Will attempt to meet with patient again. Continue to monitor for d/c needs.
[2021-03-02] MEDS: Heparin Sodium,Porcine 5,000 UNIT/ML VIAL 5000 UNIT SUBCUT ×2 (10:50→19:45)
[2021-03-02] MEDS: Lidocaine 4 % Patch ADH..PATCH 0.5 PATCH TRANSDERMA (12:49)
--- NOTE | 2021-03-02 12:51 | PC.NURSE ---
[place] [facility] [place]
[2021-03-02] MEDS: guaiFENesin DM 100/10/5 ML 5 ML SYRUP PO (19:45)
[2021-03-02] MEDS: dexAMETHasone sod phosphate 4 MG/ML VIAL 6 MG IVPUSH (21:36)
[2021-03-03] VITALS: BP 123/70; PULSE 83; RESP 20; TEMP 36.6; O2SAT 93
[2021-03-03] MEDS: guaiFENesin DM 100/10/5 ML 5 ML SYRUP PO ×3 (01:15→17:55)
[2021-03-03] MEDS: Acetaminophen 325 MG TABLET 650 MG PO (01:15)
[2021-03-03] MEDS: 0.9 % Sodium Chloride Flush 3 ML SYRINGE IVFLUSH ×4 (01:17→23:30)
[2021-03-03] MEDS: diphenhydrAMINE HCL 25 MG TABLET 50 MG PO (03:10)
[2021-03-03 04:00] VITALS: BP 120/70; PULSE 78; RESP 20; TEMP 36.6; O2SAT 98
[2021-03-03 08:21] VITALS: BP 117/71; PULSE 67; RESP 16; TEMP 36.8; O2SAT 94
[2021-03-03] MEDS: Heparin Sodium,Porcine 5,000 UNIT/ML VIAL 5000 UNIT SUBCUT ×2 (09:00→20:18)
[2021-03-03] MEDS: Lidocaine 4 % Patch ADH..PATCH 0.5 PATCH TRANSDERMA (09:01)
--- NOTE | 2021-03-03 09:36 | HO.PM.IMPN ---
Subjective Subjective Date of Service: 03/03/21 Interval History: Seen in f/u for covid PNA, and acute hypoxia, she is not any better, still on oxygne at 6 liters and sating 94 Review of Systems Gen: no fever Resp: sob CV: no chest, no CHATTERJEE, no leg edema GI: No n/v, no abd pain Neuro: No confusion Physical Exam Vital Signs: Vital Signs: Last Vital Signs Temp 98.2 F 03/03/21 08:21 Pulse 67 03/03/21 08:21 Resp 16 03/03/21 08:21 BP 117/71 03/03/21 08:21 Pulse Ox 94 03/03/21 08:21 Body Mass Index 40.3 General: AO X 3, no acute distress Resp: speaks in full sentences, no accessory muscle use, direct auscultation avoided due to active covid CVS: S1,S2,RRR GI: +BS, NT, no distention Skin: No rash Neuro: motor grossly intact Psych: appropriate affect Objective Data Current Medications Generic Name Dose Route Start Last Admin Trade Name Quocq PRN Reason Stop Dose Admin Acetaminophen 650 mg 03/02/21 04:35 03/03/21 01:15 Acetaminophen 325 Mg Tablet PO 650 mg Q6H PRN Administration Pain, Mild (Pain Scale 1-3) Dexamethasone Sodium Phosphate 6 mg 03/02/21 21:00 03/02/21 21:36 Dexamethasone Sod Phosphate 4 Mg/Ml Vial IVPUSH 6 mg Q24H SHY Administration Docusate Sodium 100 mg 03/02/21 04:35 Docusate Sodium 100 Mg Capsule PO DAILY PRN Constipation Guaifenesin/Dextromethorphan 5 ml 03/02/21 18:19 03/03/21 01:15 Guaifenesin Dm 100/10/5 Ml 5 Ml Syrup PO 5 ml Q6H PRN Administration Cough Heparin Sodium (Porcine) 5,000 unit 03/02/21 08:00 03/03/21 09:00 Heparin Sodium,Porcine 5,000 Unit/Ml Vial SUBCUT 5,000 unit Q12H SHY Administration Lidocaine 0.5 patch 03/02/21 12:00 03/03/21 09:01 Lidocaine 4 % Patch Adh..Patch TRANSDERMA 0.5 patch DAILY SHY Administration Protocol Ondansetron HCl 4 mg 04/23/21 04:35 Ondansetron Hcl 4 Mg/2 Ml Vial IVPUSH Q8H PRN Nausea and Vomiting Sodium Chloride 3 ml 03/02/21 04:35 03/03/21 09:06 0.9 % Sodium Chloride Flush 3 Ml Syringe IVFLUSH 3 ml QSHIFT SHY Administration Labs CBC & Chem 7: 03/02/21 06:11 03/02/21 06:11 Microbiology Microbiology Results: Microbiology 03/01/21 21:24 Blood - Venous Blood Culture - Preliminary No growth after 24 hours. 03/01/21 21:24 Blood - Venous Blood Culture - Preliminary No growth after 24 hours. Assessment and Plan (1) Acute respiratory failure with hypoxia: Status: Acute (2) Pneumonia due to COVID-19 virus: Status: Acute Assessment and Plan: 40-year-old female with no past medical history presents to the hospital with complaints of shortness of breath. Recently diagnosed with COVID-19 pneumonia # Acute hypoxic respiratory failure secondary to COVID-19 pneumonia - Decadron -Remdesevir requested -Oxygen as needed -Breathing treatment PRN -cough medication -Incentive spirometry -No indication for antibiotics DVT prophylaxis: Heparin subQ
[2021-03-03] MEDS: Remdesivir 200 MG in 0.9 % Sodium Chloride 210 ML 105 MG IV (11:11)
[2021-03-03 12:00] VITALS: BP 124/66; PULSE 77; RESP 18; TEMP 36.4; O2SAT 92
[2021-03-03 15:06] VITALS: BP 135/63; PULSE 85; RESP 20; TEMP 36.6; O2SAT 93
--- NOTE | 2021-03-03 15:53 | MHC.CM.PN ---
CM CONTACTED PT VIA HER CELL PHONE ([phone]). PT REPORTS SHE LIVES WITH HER SISTER AND IS FULLY INDEPENDENT, USES NO DME AND WORKS. PT DENIES THE USE OF HOME OR COMMUNITY SERVICES. PT CONFIRMS HER PCP IS BURTON MOREJON. CURRENT DC PLAN IS HOME WTIH NO SERVICES PT WILL SELF ARRANGE TRANSPORTATION
[2021-03-03] MEDS: dexAMETHasone sod phosphate 4 MG/ML VIAL 6 MG IVPUSH (20:19)
[2021-03-03 20:39] VITALS: BP 133/82; TEMP 36.8; O2SAT 95
[2021-03-03] MEDS: diphenhydrAMINE HCL 50 MG/ML VIAL 25 MG IVPUSH (21:25)
--- NOTE | 2021-03-03 21:32 | W.PM.IDCN ---
History of Present Illness Data of Consult Service Date: 03/03/21 Requesting physician: Oscar Sunshine Primary Care Provider: Nirmal Borjas MD HPI Reason for consult: hypoxia,respiratory failure She presents to hospital with shortness of breath for a week. She has some chills but no fever at this time. She has been oxygen saturation 86% on room air. She has no productive sputum. Review of Systems Review of Systems: Yes all other systems are reviewed and are negative PMFSH Past Medical History Medical History No known health problems Family History Family history: reviewed and not pertinent Social History Social History Household Members: Family Housing: House Do you presently have visiting nurse or other home services: No Alcohol intake: never Smoking Status: Never smoker Use of substances other than those prescribed or required for medical reasons: No Currently Displaying Signs/Symptoms of Drug Intoxication Withdrawal: No Have you been hit, kicked, punched, or otherwise hurt by someone within the past year? If so, by whom?: No Do you feel safe in your current relationship?: No Current Relationship Is there a partner from a previous relationship who is making you feel unsafe now?: No Are you made to feel afraid or neglected: No Advance Directives: No Advance Directives Information Provided: No Do you have thoughts of harming others: None Do you have a plan to hurt others: No Plan Recently lost weight without trying: No service: No Current occupational status: employed Meds Allergies Allergy/AdvReac Type Severity Reaction Status Date / Time No Known Allergies Allergy Verified 03/02/21 15:08 Active Medications: Current Medications Generic Name Dose Route Start Last Admin Trade Name Freq PRN Reason Stop Dose Admin Acetaminophen 650 mg 03/02/21 04:35 03/03/21 01:15 Acetaminophen 325 Mg Tablet PO 650 mg Q6H PRN Administration Pain, Mild (Pain Scale 1-3) Dexamethasone Sodium Phosphate 6 mg 03/02/21 21:00 03/03/21 20:19 Dexamethasone Sod Phosphate 4 Mg/Ml Vial IVPUSH 6 mg Q24H SHY Administration Diphenhydramine HCl 25 mg 03/03/21 20:35 03/03/21 21:25 Diphenhydramine Hcl 50 Mg/Ml Vial IVPUSH 25 mg DAILY PRN Administration with dexamethasone Docusate Sodium 100 mg 03/02/21 04:35 Docusate Sodium 100 Mg Capsule PO DAILY PRN Constipation Guaifenesin/Dextromethorphan 5 ml 03/02/21 18:19 03/03/21 17:55 Guaifenesin Dm 100/10/5 Ml 5 Ml Syrup PO 5 ml Q6H PRN Administration Cough Heparin Sodium (Porcine) 5,000 unit 03/02/21 08:00 03/03/21 20:18 Heparin Sodium,Porcine 5,000 Unit/Ml Vial SUBCUT 5,000 unit Q12H SHY Administration Remdesivir 100 mg/ Sodium 230 mls @ 115 mls/hr 03/04/21 11:00 Chloride IV 03/07/21 12:59 Q24H SHY Lidocaine 0.5 patch 03/02/21 12:00 03/03/21 09:01 Lidocaine 4 % Patch Adh..Patch TRANSDERMA 0.5 patch DAILY SHY Administration Protocol Ondansetron HCl 4 mg 03/02/21 04:35 Ondansetron Hcl 4 Mg/2 Ml Vial IVPUSH Q8H PRN Nausea and Vomiting Sodium Chloride 3 ml 03/02/21 04:35 03/03/21 17:50 0.9 % Sodium Chloride Flush 3 Ml Syringe IVFLUSH 3 ml QSHIFT SHY Administration Home Medications Medication Instructions Recorded Confirmed Last Taken Type trazodone 1 tab PO BEDTIME 03/02/21 03/02/21 Unknown History Physical Exam Vital Signs: Vital Signs: Last Vital Signs Temp 98.3 F 03/03/21 20:39 Pulse 85 03/03/21 15:06 Resp 20 03/03/21 15:06 BP 133/82 03/03/21 20:39 Pulse Ox 95 03/03/21 20:39 Body Mass Index 40.3 Const: General: cooperative HENMT: Head: Yes normal to inspection Mouth: Normal oral and palatal mucosa present Eyes: General: appearance normal, both eyes and all related structures Resp: Effort & Inspection: normal respiratory effort Cardio: Rate: regular rate Rhythm: regular rhythm GI: Palpation (GI): Soft to palpation and nontender : General: Yes no CVA tenderness Back/Spine/Pelvis: Back: no CVA tenderness Skin: General skin exam: no rashes or lesions noted Results Labs CBC & Chem 7: 03/02/21 06:11 03/02/21 06:11 Microbiology Microbiology Results: Microbiology 03/01/21 21:24 Blood - Venous Blood Culture - Preliminary No growth after 24 hours. 03/01/21 21:24 Blood - Venous Blood Culture - Preliminary No growth after 24 hours. Assessment and Plan (1) Pneumonia due to COVID-19 virus: Status: Acute Would continue oxygen as well as Dexamethasone Would give Remdesivir as well (2) Acute respiratory failure with hypoxia: Status: Acute
[2021-03-04] VITALS (9 sets, daily range): BP systolic 106–125; BP diastolic 56–65; PULSE 64–83; RESP 18–30; TEMP 36.1–36.9; O2SAT 91–96
[2021-03-04] MEDS: guaiFENesin DM 100/10/5 ML 5 ML SYRUP PO ×2 (03:45→20:16)
[2021-03-04] MEDS: Acetaminophen 325 MG TABLET 650 MG PO (03:45)
--- NOTE | 2021-03-04 09:21 | P.PNIM_ITS ---
Subjective Subjective Date of Service: 03/04/21 Interval History: Seen in f/u for covid PNA, and acute hypoxia, she feels a bit better, still 6 liters by Nasal cheyanne with O2 sat of 86 Physical Exam Vital Signs: Vital Signs: Last Vital Signs Temp 96.9 F 03/04/21 07:33 Pulse 67 03/04/21 07:33 Resp 18 03/04/21 07:33 BP 110/56 L 03/04/21 07:33 Pulse Ox 95 03/04/21 07:33 Body Mass Index 40.3 Const: General: cooperative and no acute distress Orientation/consc iousness: patient oriented x3 Eyes: General: appearance normal, both eyes and all related structures Resp: Effort & Inspection: normal respiratory effort and able to speak in complete sentences Cardio: Rate: regular rate Rhythm: regular rhythm GI: Palpation (GI): Soft to palpation Auscultation: normal bowel sounds Skin: General skin exam: no rashes or lesions noted Neuro: General: patient oriented x3 Cognition (Neuro): normal cognition Extrem: General: Yes normal to inspection and Yes no pedal edema Objective Data Current Medications Generic Name Dose Route Start Last Admin Trade Name Freq PRN Reason Stop Dose Admin Acetaminophen 650 mg 03/02/21 04:35 03/04/21 03:45 Acetaminophen 325 Mg Tablet PO 650 mg Q6H PRN Administration Pain, Mild (Pain Scale 1-3) Dexamethasone Sodium Phosphate 6 mg 03/02/21 21:00 03/03/21 20:19 Dexamethasone Sod Phosphate 4 Mg/Ml Vial IVPUSH 6 mg Q24H SHY Administration Diphenhydramine HCl 25 mg 03/03/21 20:35 03/03/21 21:25 Diphenhydramine Hcl 50 Mg/Ml Vial IVPUSH 25 mg DAILY PRN Administration with dexamethasone Docusate Sodium 100 mg 03/02/21 04:35 Docusate Sodium 100 Mg Capsule PO DAILY PRN Constipation Guaifenesin/Dextromethorphan 5 ml 03/02/21 18:19 03/04/21 03:45 Guaifenesin Dm 100/10/5 Ml 5 Ml Syrup PO 5 ml Q6H PRN Administration Cough Heparin Sodium (Porcine) 5,000 unit 03/02/21 08:00 03/03/21 20:18 Heparin Sodium,Porcine 5,000 Unit/Ml Vial SUBCUT 5,000 unit Q12H SHY Administration Remdesivir 100 mg/ Sodium 230 mls @ 115 mls/hr 03/04/21 11:00 Chloride IV 03/07/21 12:59 Q24H SHY Lidocaine 0.5 patch 03/02/21 12:00 03/03/21 09:01 Lidocaine 4 % Patch Adh..Patch TRANSDERMA 0.5 patch DAILY SHY Administration Protocol Ondansetron HCl 4 mg 03/02/21 04:35 Ondansetron Hcl 4 Mg/2 Ml Vial IVPUSH Q8H PRN Nausea and Vomiting Sodium Chloride 3 ml 03/02/21 04:35 03/03/21 23:30 0.9 % Sodium Chloride Flush 3 Ml Syringe IVFLUSH 3 ml QSHIFT SHY Administration Labs CBC & Chem 7: 03/02/21 06:11 03/02/21 06:11 Microbiology Microbiology Results: Microbiology 03/01/21 21:24 Blood - Venous Blood Culture - Preliminary No growth after 48 hours. 03/01/21 21:24 Blood - Venous Blood Culture - Preliminary No growth after 48 hours. Assessment and Plan (1) Acute respiratory failure with hypoxia: Status: Acute (2) Pneumonia due to COVID-19 virus: Status: Acute Assessment and Plan: 40-year-old female with no past medical history presents to the hospital with complaints of shortness of breath. Recently diagnosed with COVID-19 pneumonia # Acute hypoxic respiratory failure secondary to COVID-19 pneumonia - Decadron -Remdesevir D2/5 -Oxygen as needed (wean off O2) -Breathing treatment PRN -cough medication -Incentive spirometry -No indication for antibiotics -prone position if able to tolerate -check prognostic labs tomorrow DVT prophylaxis: Heparin subQ
[2021-03-04] MEDS: Heparin Sodium,Porcine 5,000 UNIT/ML VIAL 5000 UNIT SUBCUT ×2 (09:33→20:08)
[2021-03-04] MEDS: 0.9 % Sodium Chloride Flush 3 ML SYRINGE IVFLUSH ×2 (09:33→15:05)
[2021-03-04] MEDS: Lidocaine 4 % Patch ADH..PATCH 0.5 PATCH TRANSDERMA (09:34)
[2021-03-04] MEDS: Remdesivir 100 MG in 0.9 % Sodium Chloride 230 ML 115 MG IV (11:01)
--- NOTE | 2021-03-04 15:43 | PC.NURSE ---
Patient ambulated around room and then to recliner. Oxygen saturation 93% on 3L. Patient stated no signs of respiratory distress or discomfort. Patient sitting up in recliner now.
[2021-03-04] MEDS: dexAMETHasone sod phosphate 4 MG/ML VIAL 6 MG IVPUSH (20:08)
[2021-03-04] MEDS: diphenhydrAMINE HCL 50 MG/ML VIAL 25 MG IVPUSH (20:15)
[2021-03-05] MEDS: 0.9 % Sodium Chloride Flush 3 ML SYRINGE IVFLUSH ×2 (00:11→09:22)
[2021-03-05 04:00] VITALS: BP 104/60; PULSE 63; RESP 18; TEMP 36.6; O2SAT 93
[2021-03-05 06:59] VITALS: BP 109/59; PULSE 66; RESP 20; TEMP 36.6; O2SAT 95
[2021-03-05] MEDS: Lidocaine 4 % Patch ADH..PATCH 0.5 PATCH TRANSDERMA (09:21)
[2021-03-05] MEDS: Heparin Sodium,Porcine 5,000 UNIT/ML VIAL 5000 UNIT SUBCUT (09:21)
--- NOTE | 2021-03-05 10:16 | P.CDIC_ITS ---
CDI Concurrent Query Service Date: 03/05/21 Documentation Clarification: Please clarify if you are treating a proba ble/suspected/likely or confirmed: BMI Morbid obesity Please specify if known Provider Response: Morbid Obesity PLEASE DO NOT DELETE/MODIFY EXISTING CONTENT Additional information is needed in order to code to the highest accuracy and appropriate Severity of Illness (SOI). Please clarify the information noted below in your progress notes and discharge summary. Risk Factors/Clinical Indicators/Treatments Body mass index : 40.4 CDS: Michela Yip CCS, CDIS Contact Number: [phone] Please Review the information above and exercise your independent professional judgment in responding to the query. If you concur, pleas document in the PROGRESS NOTES and DISCHARGE SUMMARY. If you do not agree with the query, please document in the query above. THIS QUERY IS PART OF THE PERMANENT MEDICAL RECORD
[2021-03-05 11:04] VITALS: BP 110/66; PULSE 76; RESP 18; TEMP 35.5; O2SAT 94
--- NOTE | 2021-03-05 11:35 | MHC.CM.PN ---
Per ROUNDS discussion, Patient may be approaching time for dc; Patient is still receiving IV Decadron, IV Remdesivir and 2L O2).Home is the goal for dc and CM will continue to follow for possible need to adjust the dc plan.
--- NOTE | 2021-03-05 11:42 | HO.PM.IMPN ---
Subjective Subjective Date of Service: 03/05/21 Interval History: Seen in f/u for covid PNA, and acute hypoxia. She feels well, off Oxygen and saturating 96 on room air Physical Exam Vital Signs: Vital Signs: Last Vital Signs Temp 96 F L 03/05/21 11:04 Pulse 76 03/05/21 11:04 Resp 18 03/05/21 11:04 BP 110/66 03/05/21 11:04 Pulse Ox 94 03/05/21 11:04 Body Mass Index 40.3 Const: General: cooperative and no acute distress Orientation/consciousness: patient oriented x3 Eyes: General: appearance normal, both eyes and all related structures Resp: Effort & Inspection: normal respiratory effort and able to speak in complete sentences Cardio: Rate: regular rate Rhythm: regular rhythm GI: Palpation (GI): Soft to palpation Auscultation: normal bowel sounds Skin: General skin exam: no rashes or lesions noted Neuro: General: patient oriented x3 Cognition (Neuro): normal cognition Extrem: General: Yes normal to inspection and Yes no pedal edema Objective Data Current Medications Generic Name Dose Route Start Last Admin Trade Name Freq PRN Reason Stop Dose Admin Acetaminophen 650 mg 03/02/21 04:35 03/04/21 03:45 Acetaminophen 325 Mg Tablet PO 650 mg Q6H PRN Administration Pain, Mild (Pain Scale 1-3) Dexamethasone Sodium Phosphate 6 mg 03/02/21 21:00 03/04/21 20:08 Dexamethasone Sod Phosphate 4 Mg/Ml Vial IVPUSH 6 mg Q24H SHY Administration Diphenhydramine HCl 25 mg 03/03/21 20:35 03/04/21 20:15 Diphenhydramine Hcl 50 Mg/Ml Vial IVPUSH 25 mg DAILY PRN Administration with dexamethasone Docusate Sodium 100 mg 03/02/21 04:35 Docusate Sodium 100 Mg Capsule PO DAILY PRN Constipation Guaifenesin/Dextromethorphan 5 ml 03/02/21 18:19 03/04/21 20:16 Guaifenesin Dm 100/10/5 Ml 5 Ml Syrup PO 5 ml Q6H PRN Administration Cough Heparin Sodium (Porcine) 5,000 unit 03/02/21 08:00 03/05/21 09:21 Heparin Sodium,Porcine 5,000 Unit/Ml Vial SUBCUT 5,000 unit Q12H SHY Administration Remdesivir 100 mg/ Sodium 230 mls @ 115 mls/hr 03/04/21 11:00 03/04/21 13:33 Chloride IV 03/07/21 12:59 Infused Q24H SHY Infusion Lidocaine 0.5 patch 03/02/21 12:00 03/05/21 09:21 Lidocaine 4 % Patch Adh..Patch TRANSDERMA 0.5 patch DAILY SHY Administration Protocol Ondansetron HCl 4 mg 03/02/21 04:35 Ondansetron Hcl 4 Mg/2 Ml Vial IVPUSH Q8H PRN Nausea and Vomiting Sodium Chloride 3 ml 03/02/21 04:35 03/05/21 09:22 0.9 % Sodium Chloride Flush 3 Ml Syringe IVFLUSH 3 ml QSHIFT SHY Administration Labs CBC & Chem 7: 03/02/21 06:11 03/02/21 06:11 Microbiology Microbiology Results: Microbiology 03/01/21 21:24 Blood - Venous Blood Culture - Preliminary No growth after 48 hours. 03/01/21 21:24 Blood - Venous Blood Culture - Preliminary No growth after 48 hours. Assessment and Plan (1) Acute respiratory failure with hypoxia: Status: Acute (2) Pneumonia due to COVID-19 virus: Status: Acute Assessment and Plan: 40-year-old female with no past medical history presents to the hospital with complaints of shortness of breath. Recently diagnosed with COVID-19 pneumonia # Acute hypoxic respiratory failure secondary to COVID-19 pneumonia - Decadron -Remdesevir D3/5 -Off oxygen, -Breathing treatment PRN -cough medication -Incentive spirometry -No indication for antibiotics -prone position if able to tolerate -check prognostic labs tomorrow I will check with ID and we are able to discharge only after 3rd dose of Remdesevir DVT prophylaxis: Heparin subQ
[2021-03-05] MEDS: Remdesivir 100 MG in 0.9 % Sodium Chloride 230 ML 115 MG IV (14:18)
[2021-03-05 15:20] VITALS: BP 111/61; PULSE 76; RESP 18; TEMP 36.2; O2SAT 94
--- NOTE | 2021-03-05 17:36 | PM.DS ---
DS: Providers Provider Date of Service: 03/13/21 Date of admission: 03/02/21 04:35 Primary care physician: Nirmal Borjas MD Consults: 03/02/21 04:35 Consult to Infectious Diseases Routine Consulting Provider: Maureen Haque Reason for consultation: COVID 19 hypoxic Has provider been notified: No 03/02/21 12:01 Consult to Infectious Diseases Routine Consulting Provider: Maureen Haque Reason for consultation: need Remdesevir DS: Diagnosis Discharge Diagnosis (1) Acute respiratory failure with hypoxia: Status: Resolved (2) Pneumonia due to COVID-19 virus: Status: Resolved DS: Medications Discharge Medications Home Medications: Home Medications Medication Instructions Recorded Confirmed trazodone 1 tab PO BEDTIME 03/02/21 03/02/21 Previous Rx's Medication Instructions Recorded benzonatate [Tessalon Perles] 100 mg PO TID PRN #15 cap 02/26/21 oxycodone-acetaminophen [Percocet] 1 tab PO TID PRN #9 tab 02/26/21 dexamethasone [Decadron] 6 mg PO DAILY #4 tab 03/05/21 DS: Summary Time Spent with Patient Time attestation: Total time spent providing and/or coordinating discharge services: Discharge coordination time: Greater than 30 minutes Physical Exam Vital Signs: Vital Signs: Last Vital Signs Temp 97.2 F 03/05/21 15:20 Pulse 76 03/05/21 15:20 Resp 18 03/05/21 15:20 BP 111/61 03/05/21 15:20 Pulse Ox 94 03/05/21 15:20 Body Mass Index 40.3 Constitutional Awake and Alert, No apparent distress Neck Supple, No lymphadenopathy Cardiovascular RRR, No M/R/G, S1 S2, No S3 S4, No pedal edema Respiratory normal lung expension, speaks in full sentences, Gastrointestinal Non tender, Non-distended Skin No rash Neurological Alert & oriented x3 Psychological Appropriate affect DS: Data Data Completed and Pending Labs on day of discharge: Preliminary micro results at discharge 03/01/21 21:24 Blood Culture - Preliminary Blood - Venous No growth after 48 hours. 03/01/21 21:24 Blood Culture - Preliminary Blood - Venous No growth after 48 hours. Discharge Plan Discharge Anticipated Discharge Date/Time: 03/05/21 17:30 Patient Disposition: Home, Self-Care Discharge Diagnosis: Covid related respiratory failure Referrals: Nirmal Borjas MD [Primary Care Provider] - 1 Week Discharge Medications: New dexamethasone [Decadron] 6 mg tablet 6 mg PO DAILY Qty: 4 RF: 0 Continued benzonatate [Tessalon Perles] 100 mg capsule 100 mg PO TID PRN (Reason: cough) Qty: 15 RF: 0 oxycodone-acetaminophen [Percocet] 5-325 mg tablet 1 tab PO TID PRN (Reason: cough) Qty: 9 RF: 0 trazodone 50 mg tablet 1 tab PO BEDTIME RF: 0 Discharge Orders: Discharge Order (Routine); Ordered 03/05/21 Ordered By: Oscar Sunshine Diet: advance to usual diet Activity on Discharge: As tolerated Stand Alone Forms: Patient Portal Discharge page Care Plan Goals: full recovery from covid Health Concerns: covid Plan of Treatment: Hueye kinsey Dexamethasone,complete isolation CDC Guidelines for home isolation: - Stay away from others - Limit contact with pets and animals: If you must care for a pet, wash your hands before and after interacting with them - Wear a mask if you are sick - Cover your mouth and nose with a tissue when you cough or sneeze. Dispose of tissues in a lined trash can and wash your hands immediately with soap and water for at least 20 seconds. If soap and water are not available, clean hands with alcohol-based hand medical insurance claims processor that contains at least 60% alcohol. - Clean your hands often with soap and water for at least 20 seconds - Avoid touching your eyes, nose and mouth with unwashed hands - Do not share dishes, drinking glasses, cups, eating utensils, towels, or bedding with other people in your home. After using these items, wash them thoroughly with soap and water or put in the cell tuber hand. - Clean high-touch surfaces in your isolation area (?sick room? and bathroom) every day; let a caregiver clean and disinfect high-touch surfaces in other areas of the home. Clean the area or item with soap and water or another detergent if it is dirty. Then, use a household disinfectant. Seek medical attention, but call first: - Seek medical care right away if your illness is worsening (for example, if you have difficulty breathing). - Call your doctor before going in: Before going to the doctor?s office or emergency room, call ahead and tell them your symptoms. They will tell you what to do. - If possible, put on a facemask before you enter the building. If you can?t put on a facemask, try to keep a safe distance from other people (at least 6 feet away). This will help protect the people in the office or waiting room. - Follow care instructions from your healthcare provider and local health department: Your local health authorities will give instructions on checking your symptoms and reporting information. Emergency warning signs for COVID-19: - Difficulty breathing or shortness of breath - Persistent pain or pressure in the chest - New confusion or inability to arouse - Bluish lips or face Additional Instructions: - [] Assessment: Covid 19 with acute respiratory failure Discharge Date/Time: 03/05/21 17:49
== END 2021-03-05 17:49 | disposition home or self-care (01) | DRG 137 ==
LOC: HO.ED 03-02 00:31 → HO.EDOVER 03-02 04:42 → HO.IMC 03-02 12:47 → HO.S3 03-02 14:03 → HO.IMC 03-02 14:06
PROVIDERS: Admitting Provider Internal Medicine; Emergency Provider Internal Medicine; PCP Internal Medicine; Visit Provider Internal Medicine
DX: U07.1 COVID-19 (principal); J96.01 Acute respiratory failure with hypoxia; J12.82 Pneumonia due to coronavirus disease 2019; E66.01 Morbid (severe) obesity due to excess calories; Z68.41 Body mass index [BMI] 40.0-44.9, adult; Z79.899 Other long term (current) drug therapy
CPT/HCPCS: 36415; 71045; 80048; 80076; 82728; 83605; 83615; 85025; 85379; 85610; 85730; 86140; 87040; 96365; 96366; 96368; 99285; J0456; J0696; J1100; J1200; J3490; Q0163

== ENCOUNTER 2023-08-16 09:04 | Emergency (ER) | payer OTHER, SELFPAY ==
[2023-08-16 09:09] VITALS: BP 148/91; PULSE 72; RESP 19; TEMP 36.6; O2SAT 98; BMI 35.9
[2023-08-16 10:20] VITALS: BP 131/85; PULSE 79; RESP 16; O2SAT 98
--- NOTE | 2023-08-16 10:51 | ED.GENADULT ---
HPI - General Adult General Chief complaint: Abdominal Pain Stated complaint: abd pain/ back pain Time Seen by Provider: 08/16/23 10:51 Source: patient Mode of arrival: ambulatory Limitations: no limitations History of Present Illness HPI narrative: Patient is a 42 year old assigned female at with no reported medical history presenting to the emergency department today with right flank pain. Patient states that over the last few days she has had intermittent right flank pain. Patient denies any dizziness, lightheadedness, abdominal pain, nausea, vomiting, fever, chills, blurry vision, double vision, loss of vision, chest pain, difficulty breathing, shortness of breath, back pain, night sweats, pain with urination, increased urinary frequency, increased urinary urgency, blood in her stool, syncope or a near syncopal episode, recent trauma or falls, bowel incontinence, bladder incontinence, bowel retention, bladder retention, or any other complaints at this time. Onset (ago): day(s) Location: right (flank) Radiation: non-radiation Severity: mild Severity scale (1-10): 3 Pain Consistency: constant Relieving factors: none Exacerbating factors: none Associated symptoms: denies other symptoms Treatments prior to arrival: none Related Data Home Medications Medication Instructions Recorded Confirmed trazodone 50 mg tablet 1 tab PO BEDTIME 03/02/21 03/02/21 Previous Rx's Medication Instructions Recorded benzonatate 100 mg capsule 100 mg PO TID PRN cough #15 caps 02/26/21 (Tessalon Perles) oxycodone-acetaminophen 5 mg-325 1 tab PO TID PRN cough #9 tabs 02/26/21 mg tablet (Percocet) dexamethasone 6 mg tablet 6 mg PO DAILY #4 tabs 03/05/21 (Decadron) Allergies Allergy/AdvReac Type Severity Reaction Status Date / Time No Known Allergies Allergy Verified 08/16/23 09:09 Review of Systems Constitutional: Constitutional: Reports no additional constitutional complaints, Denies chills, Denies fever(s) and Denies night sweats Eyes: Eyes: Reports no additional eye complaints, Denies blurry vision, Denies change in vision, Denies diplopia, Denies eye discharge, Denies loss of vision and Denies eye pain ENT: Denies dizziness Cardiovascular: Cardiovascular: Reports no additional cardiovascular complaints, Denies chest pain, Denies lightheadedness, Denies Loss of Consciousness and Denies dyspnea Respiratory: Respiratory: Reports no additional respiratory complaints and Denies dyspnea Gastrointestinal: Gastrointestinal: Reports no additional gastrointestinal complaints, Denies abdominal pain, Denies melena, Denies hematochezia, Denies change in bowel habits and Denies change in stool character Genitourinary: Genitourinary: Denies hematuria, Denies urinary frequency, Denies dysuria, Denies urinary incontinence, Denies urinary hesitancy and Denies urinary urgency Comments: flank pain Musculoskeletal: Musculoskeletal: Reports no additional musculoskeletal complaints, Denies numbness and Denies tingling Neurologic: Denies dizziness, Denies loss of vision, Denies numbness and Denies tingling Psychiatric: Psychiatric: Reports no additional psychiatric complaints Endocrine: Endocrine: Reports no additional endocrine complaints Hematologic/Lymphatic: Hematologic/Lymphatic: Reports no additional hematologic/lymphatic complaints Allergic/Immunologic: Allergic/Immunologic: Reports no additional allergic/immunologic complaints PMFSH Past Medical History Attestation statement: The following information was validated with the patient. Source: old records reviewed and nursing notes reviewed Medical History No known health problems Social History Social History Household Members: Family Housing: House Do you presently have visiting nurse or other home services: No Alcohol intake: never Advance Directives: No Advance Directives Information Provided: Yes service: No Current occupational status: employed Physical Exam ED Vital Signs: Vital Signs - 24 hr 08/16/23 09:09 08/16/23 10:20 Temperature 98 F Pulse Rate 72 79 Respiratory Rate 19 16 Blood Pressure 148/91 H 131/85 Pulse Oximetry 98 98 Oxygen Delivery Method Room Air Room Air BMI result Body Mass Index 35.9 Const General: cooperative, no acute distress, alert and awake Nutritional Appearance: well nourished Orientation/consciousness: patient oriented x3 Limitations: no limitations HENMT Head: Yes normal to inspection and Yes atraumatic Ears: hearing grossly normal bilaterally and external ears normal General nose exam: Normal external nose present, no nasal discharge noted and no epistaxis Face and sinus: Yes normal facial exam, No abrasion and No laceration Mouth: Normal oral and palatal mucosa present, no drooling and no muffled voice Eyes General: appearance normal, both eyes and all related structures Periorbital: periorbital findings normal Eyelids: Yes eyelids normal Conjunctivae: conjunctivae normal Pupils: Equal, round and reactive pupils present EOM: EOMs intact bilaterally Neck Neck: Yes normal visual inspection, Yes full ROM and Yes no lymphadenopathy Chest Chest palpation & inspection: normal inspection of the chest Resp Effort & Inspection: normal respiratory effort and able to speak in complete sentences Auscultation: clear to auscultation bilaterally Cardio Rate: regular rate Rhythm: regular rhythm GI Inspection: Yes normal to inspection Palpation (GI): Soft to palpation, not firm, nontender and no guarding Neuro General: patient oriented x3 and moves all extremities Cranial nerves: Yes Equal, round and reactive pupils present Cognition (Neuro): normal cognition Motor exam (neuro): 5/5 motor strength present throughout Sensory Exam: Normal double simultaneous stimulation for sensation Coordination: [id number] test normal Extrem General: Yes normal to inspection, Yes full ROM and Yes capillary refill normal Psych Appearance: grossly normal Mental Status: mental status grossly normal Affect: normal affect Attitude: cooperative Thought process: Normal thought process present Thought content: Normal thought content present Insight: Good insight present (Psych) Medical Decision Making Medical Decision Making MDM Narrative: Patient is a 42 year old assigned female at with no reported medical history presenting to the emergency department today with flank pain. Patient's physical exam was unremarkable. Patient's blood work was unremarkable. Patient's urine showed >20 RBC and large blood. Patient passed a kidney stone while in the department and stated that her symptoms resolved. I explained my physical exam findings as well as all test results to the patient. I answered all questions asked by the patient. I stressed the importance of the patient taking her medication as prescribed. I stressed the importance of the patient following up with her primary care provider and a urologist. I stressed the importance of the patient returning to the emergency department immediately if her symptoms were to worsen or if she were to develop any dizziness, shortness of breath, difficulty breathing, chest pain, blurry vision, loss of vision, nausea, vomiting, abdominal pain, fever, chills, back pain, or any other complaints. Patient verbalized agreement and understanding with this treatment plan and discharge. Differential Diagnosis Differential Diagnoses: The differential diagnosis associated with the presentation includes Kidney stone Lab Data [facility] Lab Attestation statement: I reviewed the patient's lab results. My interpretation of these results are in the [facility] Rationale portion of this note. 08/16/23 09:50 08/16/23 09:50 Labs: Lab Results 08/16/23 08/16/23 Range/Units 09:50 10:22 WBC 5.1 (4.8-10.8) X10*3/uL RBC 4.48 (4.20-5.50) X10*6/uL Hgb 12.9 (12.0-16.0) g/dl Hct 39.3 (37.0-47.0) % MCV 87.7 (80.0-98.0) fL MCH 28.8 (27.0-33.0) pg MCHC 32.8 (31.0-35.0) g/dl RDW 14.4 (11.0-16.0) % Plt Count 285 (160-400) X10*3/uL MPV 10.1 (9.4-12.3) fL Immature Gran % (Auto) 0.2 (0.0-0.4) % Neut % (Auto) 60.4 (45-73) % Lymph % (Auto) 28.7 (20-40) % [place] % (Auto) 9.7 (2-11) % Eos % (Auto) 0.8 (0-4) % Baso % (Auto) 0.2 (0-2) % Lymph # (Auto) 1.5 (1.2-4.9) X10*3/uL [place] # (Auto) 0.5 (0.1-1.2) X10*3/uL Eos # (Auto) 0.0 (0.0-0.4) X10*3/uL Baso # (Auto) 0.0 (0.0-0.2) X10*3/uL Abs Immat Gran (auto) 0.01 (0.00-0.03) X10*3/uL Absolute Neuts (auto) 3.1 (2.0-8.3) x10*3/uL Absolute Nucleated RBC 0.000 (0.0-0.012) X10*3/uL Nucleated RBC % (auto) 0.0 (0.0-0.2) /100WBC Sodium 143 (135-145) mmol/L Potassium 3.2 L (3.3-5.1) mmol/L Chloride 109 H (96-108) mmol/L Carbon Dioxide 22 (22-29) mmol/L Anion Gap 15 (12-20) BUN 8 L (9-16) mg/dL Creatinine 0.77 (0.5-1.4) mg/dL Estim Creat Clear Calc 111.4 Estimated GFR > 60 Random Glucose 89 (60-115) mg/dL Calcium 9.4 D (8.4-10.2) mg/dL Total Bilirubin 0.9 (0.0-1.0) mg/dL Direct Bilirubin 0.3 (0.0-0.5) mg/dL AST 24 (5-31) U/L ALT 23 (0-31) U/L Alkaline Phosphatase 59 (39-117) U/L Total Protein 7.1 (6.5-8.0) g/dL Albumin 3.7 (3.5-5.0) g/dL Lipase 33 (8-78) U/L Urine Color Red A Urine Appearance Clear Urine pH 7.0 (5.0-9.0) Ur Specific [place] <= 1.005 (1.005-1.025) Urine Protein 100 (2+) H (Neg-Trace) mg/dL Urine Glucose (UA) Negative (Negative) mg/dL Urine Ketones Negative (Negative) mg/dL Urine Blood Large (3+) H (Negative) Urine Nitrite Negative (Negative) Ur Leukocyte Esterase Trace H (Negative) Urine RBC >20 H (0-2) /HPF Urine WBC 0-5 (0-5) /HPF Ur Squamous Epith Cells 6-10 (0-2) /HPF Urine Bacteria Trace (None Seen) Hyaline Casts 0-2 (0-2) /LPF Urine Test NEGATIVE (NEGATIVE) Discharge Plan Discharge Clinical Impression: Kidney calculus Patient Disposition: Home, Self-Care Instructions: Kidney Stones (ED) Additional Instructions: Follow up with your primary care provider and a urologist. Return to the emergency department immediately if your symptoms worsen or if you develop any dizziness, shortness of breath, difficulty breathing, chest pain, blurry vision, loss of vision, nausea, vomiting, abdominal pain, fever, chills, back pain, or any other complaints. Prescriptions: No Action benzonatate [Tessalon Perles] 100 mg capsule 100 mg PO TID PRN (Reason: cough) Qty: 15 0RF oxycodone-acetaminophen [Percocet] 5-325 mg tablet 1 tab PO TID PRN (Reason: cough) Qty: 9 0RF trazodone 50 mg tablet 1 tab PO BEDTIME dexamethasone [Decadron] 6 mg tablet 6 mg PO DAILY Qty: 4 0RF Referrals: [facility] [Provider Group] (Call to establish and follow up with a urologist.) Nirmal Borjas III, MD [Primary Care Provider] - Stand Alone Forms: Work/School Release Interventions: ED Discharge Assessment Last Done: 08/16/23 11:18 Discharge Date/Time: 08/16/23 11:19 Print Language: [place]ralt[place]
== END 2023-08-16 11:19 | disposition home or self-care (01) ==
PROVIDERS: Emergency Provider Emergency Medicine Emergency Medical Services; PCP Internal Medicine
DX: N20.0 Calculus of kidney (principal); R10.9 Unspecified abdominal pain
CPT/HCPCS: 36415; 80048; 80076; 81001; 81025; 83690; 85025; 99283

== ENCOUNTER 2023-10-10 13:31 | Outpatient (AMB) | payer OTHER, SELFPAY ==
--- NOTE | 2023-10-10 13:41 | MHC.OFFVIS ---
Intake Vital Signs 10/10/23 13:42 Height 5 ft 5 in Weight 198 lb BMI 32.9 BP 110/72 Intake Visit Reasons: New patient Annual Intake Note: no concerns Pulmonary Specialist Required: No Information Interpreted: non-clinical & clinical [employer] Products Assembler: [employer] Assembler Present (Cait ARMIJO) Accompanied by: Self / Same As Patient Allergies hydromorphone [From Dilaudid] Allergy (Intermediate, Verified 10/10/23 13:44) Rash oxycodone Allergy (Intermediate, Verified 10/10/23 13:44) Vomiting Is last menstrual period known: Yes Last menstrual period: 10/08/23 HPI HPI Comments History of Present Illness Details She is a premenopausal woman presenting for annual examination. Doing well with concerns: Some external itching mostly around the time she has has her menses and wears a pad, wearing pads most days though using always brand. She tries to eat healthy and stays active with exercise. Regular monthly menses that last approximately 3-5d. Currently is not sexually active. STI screening offered; she accepts. Denies family history of breast, ovarian or colon cancer. Last pap smear not up-to-date Mammogram up-to-date, completed at [facility] Medical History (Updated 08/24/23 @ 00:02 by Bashir Ying) No known health problems Surgical History (Updated 10/10/23 @ 13:47 by Cait Owen CMA) H/O gastric sleeve Family History (Updated 10/10/23 @ 13:49 by Cait Owen CMA) Mother Diabetes HTN (hypertension) Maternal Aunt Breast cancer Social History (Updated 10/10/23 @ 13:51 by Cait Owen CMA) Household Members: Family Household Members Other:: sister Housing: House Do you presently have visiting nurse or other home services: No Alcohol intake: never Patient Tobacco Use Status: Never used Tobacco service: No Current occupational status: employed 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 Reproductive History Menstrual Date of last menstrual period: 10/08/23 Review of Systems Const All systems reviewed & are unremarkable except as noted in HPI and below Reports as per HPI Eyes Reports no additional complaints ENT Reports no additional complaints Card Reports no additional complaints Resp Reports no additional complaints GI Reports as per HPI and Reports no additional complaints Reports as per HPI Musc Reports no additional complaints Skin/Breast Reports as per HPI Neuro Reports no additional complaints Psych Reports no additional complaints Endo Reports no additional complaints Aiden/Lymph Reports no additional complaints Aller/Immun Reports no additional complaints Physical Exam Vital Signs: Last Vital Signs BP 110/72 10/10/23 13:42 BMI result Body Mass Index 32.9 Const General: cooperative, healthy appearing, no acute distress, well developed and alert Orientation/consciousness: patient oriented x3 HEENT Head: Yes normal to inspection Eyes General: appearance normal, both eyes and all related structures Neck Neck: Yes normal visual inspection Thyroid: Thyroid normal Chest Chest palpation & inspection: normal inspection of the chest and other (no puckering, dimpling, peau de orange, retraction, discharge, masses) Breast/axilla inspection: normal inspection of the breasts Breast/axilla palpation: normal palpation of the breasts Resp Effort & Inspection: normal respiratory effort GI Inspection: Yes normal to inspection Palpation (GI): Soft to palpation Rectal Exam - Female: deferred General: Yes bladder normal to palpation External Female Exam: normal external appearance and normal appearance of the urethra Speculum Exam - Vagina: normal appearance of the vagina, normal palpation and normal vaginal discharge Speculum Exam - Cervix: normal appearance of the cervix and normal palpation Bimanual exam- vagina & uterus: normal bimanual exam, normal palpation, bladder normal to palpation, normal palpation, non-tender, enlarged and other (Blood with Pap) Bimanual Exam- Adnexa, other: no masses Skin General skin exam: no rashes or lesions noted Rashes: no rashes Neuro General: patient oriented x3 Cognition (Neuro): normal cognition Extrem General: Yes normal to inspection Psych Attitude: cooperative Thought process: Normal thought process present Assessment & Plan Assessment & Plan (1) Encounter for well woman exam with routine gynecological exam: Code(s): Z01.419 - Encounter for gynecological examination (general) (routine) without abnormal findings (2) Enlarged uterus: Code(s): N85.2 - Hypertrophy of uterus Plan: Discussed the plan to obtain a ultrasound. All of her questions and concerns were addressed to the best of my ability and shared decision making. She is agreeable to the plan of care. Plan Discussed: Current recommendations for pap smears per ASCCP guidelines. Breast awareness and periodic breast exams. Maintain a healthy lifestyle including a well balanced diet and routine exercise. Use condoms for STI and prevention. Sign up for the patient portal if not already enrolled. Discussed using other external feminine hygiene products besides always brand and not using a pad if not needed. All of her questions and concerns were addressed to the best of my ability. 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 Sign release for mammogram records to be sent here. Orders: Orders Pap Smear Today N89.8 - Other specified noninflammatory disorders of vagina, Z01.419 - Encounter for gynecological examination (general) (routine) without abnormal findings CT NG by PCR Today N89.8 - Other specified noninflammatory disorders of vagina, Z01.419 - Encounter for gynecological examination (general) (routine) without abnormal findings Bacterial Vaginosis Panel Today N89.8 - Other specified noninflammatory disorders of vagina, Z01.419 - Encounter for gynecological examination (general) (routine) without abnormal findings US pelvic and transvaginal Today N85.2 - Hypertrophy of uterus Syphilis Screen Today Z20.2 - Contact with and (suspected) exposure to infections with a predominantly sexual mode of transmission Hepatitis C Antibody Today Z20.2 - Contact with and (suspected) exposure to infections with a predominantly sexual mode of transmission Hepatitis B Core Antibody Today Z20.2 - Contact with and (suspected) exposure to infections with a predominantly sexual mode of transmission HIV Ab/Ag Today Z20.2 - Contact with and (suspected) exposure to infections with a predominantly sexual mode of transmission Coding Level of Care Code New Pt Prev Care 40-64y(15280) Diagnoses Encounter for well woman exam with routine gynecological exam Z01.419 Enlarged uterus N85.2
[2023-10-10 13:42] VITALS: BP 110/72; BMI 32.9
== END 2023-10-10 14:17 | disposition home or self-care (01) ==
PROVIDERS: PCP Internal Medicine; Visit Provider Advanced Practice Midwife
DX: Z01.419 Encounter for gynecological examination (general) (routine) without abnormal findings (principal); N85.2 Hypertrophy of uterus
CPT/HCPCS: 99386

== ENCOUNTER 2023-10-10 13:31 | Outpatient (REF) | payer OTHER, SELFPAY ==
[2023-10-16 05:04] LABS: HPV mRNA E6/E7 rflx Not Detected (Not Detected)
== END 2023-10-10 13:32 | disposition home or self-care (01) ==
LOC: HO.LNP 13:31
PROVIDERS: PCP Internal Medicine; Visit Provider Advanced Practice Midwife
DX: Z01.419 Encounter for gynecological examination (general) (routine) without abnormal findings (principal); Z11.51 Encounter for screening for human papillomavirus (HPV); N89.8 Other specified noninflammatory disorders of vagina
CPT/HCPCS: 87624; 88142

== ENCOUNTER 2023-10-10 14:21 | Outpatient (REF) | payer OTHER, SELFPAY ==
[2023-10-10 17:50] LABS: CT PCR NOT DETECTED (Not Detect.); NG PCR NOT DETECTED (Not Detect.)
[2023-10-12 09:16] LABS: Syphilis Screen Nonreactive (Nonreactive)
[2023-10-12 09:30] LABS: HBc Num1 0.11 S/CO (0.00-0.79); HIV AB/AG Nonreactive (Nonreactive); HIV Num 1 0.06 S/CO (0.00-0.99); Hepatitis B Core Antibody Nonreactive (Nonreactive); ~HepC Num1 0.12 S/CO (0.00-0.79); ~Hepatitis C Antibody Nonreactive (Nonreactive)
[2023-10-12 14:31] LABS: BV Int Neg Control Negative (Negative); BV Int Pos Control Positive (Positive)
== END 2023-10-10 14:22 | disposition home or self-care (01) ==
LOC: HO.LAB 14:21
PROVIDERS: PCP Internal Medicine; Visit Provider Advanced Practice Midwife
DX: Z01.419 Encounter for gynecological examination (general) (routine) without abnormal findings (principal); Z11.4 Encounter for screening for human immunodeficiency virus [HIV]; Z20.2 Contact with and (suspected) exposure to infections with a predominantly sexual mode of transmission; N89.8 Other specified noninflammatory disorders of vagina
CPT/HCPCS: 0353U; 86704; 86780; 86803; 87389; 87480; 87510; 87660

== ENCOUNTER 2023-11-11 14:35 | Outpatient (REF) | payer OTHER, SELFPAY | END 2023-11-11 14:36 | disposition home or self-care (01) | LOC: HO.US 14:35 | PROVIDERS: PCP Internal Medicine; Visit Provider Advanced Practice Midwife | DX: N85.2 Hypertrophy of uterus (principal) | CPT/HCPCS: 76830; 76856 ==

== ENCOUNTER 2023-12-10 14:36 | Outpatient (AMB) | payer OTHER, SELFPAY ==
[2023-12-10 14:41] VITALS: BP 90/56; BMI 32.9
--- NOTE | 2023-12-10 14:41 | A.OFFVIS_ITS ---
Intake Vital Signs 12/10/23 14:41 Height 5 ft 5 in Weight 198 lb BMI 32.9 BP 90/56 L Intake Visit Reasons: US follow up Block Layer: Block Layer Present Allergies hydromorphone [From Dilaudid] Allergy (Intermediate, Verified 12/10/23 14:42) Rash oxycodone Allergy (Intermediate, Verified 12/10/23 14:42) Vomiting Is last menstrual period known: Yes Last menstrual period: 11/10/23 HPI HPI Comments History of Present Illness Details Patient is here today for ultrasound follow-up. She reports feeling well with no concerns. [facility] Medical History (Updated 12/10/23 @ 16:29 by Bonnie Abdi CNM) Fibroid No known health problems Surgical History Hx of wisdom tooth extraction H/O gastric sleeve Family History Mother Diabetes HTN (hypertension) Maternal Aunt Breast cancer Social History Household Members: Family Household Members Other:: sister Housing: House Do you presently have visiting nurse or other home services: No Alcohol intake: never Patient Tobacco Use Status: Never used Tobacco service: No Current occupational status: employed Current occupation: [employer] Female Reproductive History Menstrual Date of last menstrual period: 11/10/23 Review of Systems Const All systems reviewed & are unremarkable except as noted in HPI and below Endo Reports no additional complaints Physical Exam Vital Signs: Last Vital Signs BP 90/56 L 12/10/23 14:41 BMI result Body Mass Index 32.9 Const General: cooperative, healthy appearing and no acute distress Psych Appearance: well kempt Attitude: cooperative Thought process: Normal thought process present Results Reviewed Results Reviewed: [address] [address] Ultrasound Report Signed Patient: Caterina García MR#: [id number] : 1980 Acct:[id number] Age/Sex: 42 / F ADM Date: 11/11/23 Loc: HO.US Attending Dr: Bonnie Abdi CNM Ordering Physician: Bonnie Abdi CNM Date of Service: 11/11/23 Procedure(s): US pelvic and transvaginal Accession Number(s): [id number] cc: Nirmal Borjas III, MD; Bonnie Abdi CNM~ EXAMINATION: US PELVIS CLINICAL INFORMATION: Hypertrophy of the uterus COMPARISON: None available. TECHNIQUE: Ultrasound of the pelvis is performed using both transabdominal and transvaginal transducers along with Doppler. Transvaginal imaging is performed due to inadequate visualization transabdominally. Transvaginal imaging limited due to fibroid. FINDINGS: The uterus is anteverted and anteflexed measuring 9.7 x 5.0 x 6.4 cm. 6.9 x 5.0 x 5.2 cm uterine fibroid is seen. The endometrium measures 0.9 cm. Nabothian cysts identified. There is no pelvic ascites or fluid collection. Right ovary measures 3.2 x 2.8 x 3.0 for a volume of 14.7 mL. Left ovary measures the 3.1 x 2.2 x 2.9 for a volume of 10.4 mL. Left 1.8 x 1.7 x 1.7 cm corpus luteum cyst was seen transabdominally. US/US pelvic and transvaginal IMPRESSION: Uterine fibroid. 1.8 cm left corpus luteum cyst. Dictated By: Karla Bey MD Signed By: <Electronically signed by Karla Bey MD in OV> 11/12/23 1639 DD/ 1452 TD/TT: Pupil Personnel Services Director: Assessment & Plan Assessment & Plan (1) Fibroid: Comment: 6.9 cm Code(s): D21.9 - Benign neoplasm of connective and other soft tissue, unspecified (2) Encounter to discuss test results: Code(s): Z71.2 - Person consulting for explanation of examination or test findings Plan Counseled re: Leiomyoma: common pelvic neoplasm. Differential diagnosis-may include leiomyosarcoma which is a rare uterine sarcoma 3-7/100,000, difficult to distinguish from fibroids on ultrasound from uterine sarcoma's. Unlikely any single test will have a highly positive predictive value. Hysterectomy is not recommended for sole purpose of excluding malignant neoplasm. Report any AUB. Pelvic pressure, bloating, or pain. Expectant management follow up in 6 months, then yearly for stability. Follow- up ultrasound appointment in 6 months. All of her questions and concerns were addressed to the best of my ability and shared decision making. She is agreeable to the plan of care. This note is constructed using voice recognition software. While every effort has been made to ensure accuracy, technical internship errors may have been included. Orders: Orders US pelvic and transvaginal 05/11/24 D21.9 - Benign neoplasm of connective and other soft tissue, unspecified Coding Level of Care Code Est Pt Level 3 (68877) Diagnoses Fibroid D21.9 Encounter to discuss test results Z71.2
== END 2023-12-11 07:45 | disposition home or self-care (01) ==
LOC: HO.HWS 14:36
PROVIDERS: PCP Internal Medicine; Visit Provider Advanced Practice Midwife
DX: D21.9 Benign neoplasm of connective and other soft tissue, unspecified (principal); Z71.2 Person consulting for explanation of examination or test findings
CPT/HCPCS: 99213

== ENCOUNTER → 2023-12-10 14:36 | Outpatient (BNVA) | payer OTHER, SELFPAY | PROVIDERS: PCP Internal Medicine; Visit Provider Advanced Practice Midwife ==

== ENCOUNTER 2024-05-05 15:55 | Outpatient (REF) | payer OTHER, SELFPAY | END 2024-05-05 15:56 | disposition home or self-care (01) | LOC: HO.SH 15:55 | PROVIDERS: Visit Provider Internal Medicine | DX: Z01.118 Encounter for examination of ears and hearing with other abnormal findings (principal); H93.293 Other abnormal auditory perceptions, bilateral | CPT/HCPCS: 92552; 92556 ==

== ENCOUNTER 2024-05-11 11:03 | Outpatient (REF) | payer OTHER, SELFPAY | END 2024-05-11 11:04 | disposition home or self-care (01) | LOC: HO.US 11:03 | PROVIDERS: PCP Internal Medicine; Visit Provider Advanced Practice Midwife | DX: Z13.89 Encounter for screening for other disorder (principal) ==

== ENCOUNTER 2024-06-14 16:27 | Outpatient (REF) | payer OTHER, SELFPAY ==
--- NOTE | ~2024-06-14 | US_ITS ---
EXAMINATION: US PELVIS COMPLETE CLINICAL INFORMATION: Follow-up leiomyoma; the last menstrual period was 2 weeks prior. COMPARISON: Pelvic ultrasound dated 11/11/2023. TECHNIQUE: Transabdominal imaging was performed. The patient declined transvaginal imaging. FINDINGS: The uterus is of normal size and echogenicity, measuring 8.8 x 5.1 x 9.4 cm. The uterus is anteverted and anteflexed. A regular homogeneous endometrium is identified measuring 0.3 cm. FIBROIDS: There are 2 fibroids seen. 1. Location: Lower rightward body, subserosal. Size: 6.4 x 5.9 x 5.3 cm. Prior: 6.9 x 5.0 x 5.2 cm. Fibroid characteristics: Heterogeneous echotexture. 2. Location: Mid leftward body, subserosal. Size: 3.0 x 3.2 x 2.8 cm. Prior, not seen. Fibroid characteristics: Heterogeneous echotexture. Both ovaries are of normal size and echogenicity. [The ovaries show normal doppler flow.] The right ovary measures 2.7 x 1.7 x 1.3 cm for a volume of 3.1 mL. The left ovary measures 3.1 x 2.3 x 1.7 cm for a volume of 6.4 mL. The left ovary contains a 1.6 cm corpus luteum cyst. There is no pelvic free fluid. No adnexal mass is seen. US/US pelvic and transvaginal IMPRESSION: 1. Uterine fibroids are seen, as detailed. 2. A 1.6 cm left ovarian corpus luteum cyst is of incidental note. Electronically signed by: Ariel Bacon MD 07/08/2024 11:37 AM EDT
== END 2024-06-14 16:28 | disposition home or self-care (01) ==
LOC: HO.US 16:27
PROVIDERS: PCP Internal Medicine; Visit Provider Advanced Practice Midwife
DX: D25.2 Subserosal leiomyoma of uterus (principal)
CPT/HCPCS: 76830; 76856

== ENCOUNTER 2024-07-21 15:22 | Outpatient (AMB) | payer OTHER, SELFPAY ==
[2024-07-21 15:34] VITALS: BP 100/62
--- NOTE | 2024-07-21 15:34 | MHC.OFFVIS ---
Vital Signs 07/21/24 15:34 BP 100/62 Intake Visit Reasons: ultra sound follow up Commercial Litigation Attorney: Commercial Litigation Attorney Present Allergies hydromorphone [From Dilaudid] Allergy (Intermediate, Verified 07/21/24 15:34) Rash oxycodone Allergy (Intermediate, Verified 07/21/24 15:34) Vomiting Is last menstrual period known: Yes HPI Comments Details: Patient is here today for a follow up on ultrasound results. History of large fibroid. Menstrual cycles are regular lasting 5 days heavy for the 1st 1-2 days. Currently not sexually active and not on control for cycle control. Taking ferrous sulfate and B12 supplements follow up by her PCP, status post bariatric surgery-gastric sleeve. She reports from her patient portal at [facility] last H&H were 11.2/36.6, TSH cascade was 1.57 both completed on 04/16/2024. [facility] Medical History (Updated 12/10/23 @ 16:29 by Bonnie Abdi CNM) Fibroid No known health problems Surgical History Hx of wisdom tooth extraction H/O gastric sleeve Family History Mother Diabetes HTN (hypertension) Maternal Aunt Breast cancer Social History Household Members: Family Household Members Other:: sister Housing: House Do you presently have visiting nurse or other home services: No Alcohol intake: never Patient Tobacco Use Status: Never used Tobacco service: No Current occupational status: employed Current occupation: [employer] Review of Systems Const All systems reviewed & are unremarkable except as noted in HPI and below Endo Reports no additional complaints Physical Exam Vital Signs: Last Vital Signs BP 100/62 07/21/24 15:34 Const General: cooperative, healthy appearing and no acute distress Psych Appearance: well kempt Attitude: cooperative Thought process: Normal thought process present Results Reviewed Results Reviewed: [address] [address] Ultrasound Report Signed Patient: Caterina García MR#: [id number] : 1980 Acct:[id number] Age/Sex: 43 / F ADM Date: 06/14/24 Loc: HO.US Attending Dr: Bonnie Abdi CNM Ordering Physician: Bonnie Abdi CNM Date of Service: 06/14/24 Procedure(s): US pelvic and transvaginal Accession Number(s): [id number] cc: Nirmal Borjas III, MD; Bonnie Abdi CNM~ EXAMINATION: US PELVIS COMPLETE CLINICAL INFORMATION: Follow-up leiomyoma; the last menstrual period was 2 weeks prior. COMPARISON: Pelvic ultrasound dated 11/11/2023. TECHNIQUE: Transabdominal imaging was performed. The patient declined transvaginal imaging. FINDINGS: The uterus is of normal size and echogenicity, measuring 8.8 x 5.1 x 9.4 cm. The uterus is anteverted and anteflexed. A regular homogeneous endometrium is identified measuring 0.3 cm. FIBROIDS: There are 2 fibroids seen. 1. Location: Lower rightward body, subserosal. Size: 6.4 x 5.9 x 5.3 cm. Prior: 6.9 x 5.0 x 5.2 cm. Fibroid characteristics: Heterogeneous echotexture. 2. Location: Mid leftward body, subserosal. Size: 3.0 x 3.2 x 2.8 cm. Prior, not seen. Fibroid characteristics: Heterogeneous echotexture. Both ovaries are of normal size and echogenicity. [The ovaries show normal doppler flow.] The right ovary measures 2.7 x 1.7 x 1.3 cm for a volume of 3.1 mL. The left ovary measures 3.1 x 2.3 x 1.7 cm for a volume of 6.4 mL. The left ovary contains a 1.6 cm corpus luteum cyst. There is no pelvic free fluid. No adnexal mass is seen. US/US pelvic and transvaginal IMPRESSION: 1. Uterine fibroids are seen, as detailed. 2. A 1.6 cm left ovarian corpus luteum cyst is of incidental note. Electronically signed by: Ariel Bacon MD 07/08/2024 11:37 AM EDT Workstation: [id number] Dictated By: Ariel Bacon MD Signed By: <Electronically signed by Ariel Bacon MD in OV> 07/08/24 1137 DD/ 1637 TD/TT: 06/14/24 1652 Cutting Torch Operator: JULIO Assessment & Plan Assessment & Plan (1) Fibroid: Comment: 6.9 cm Code(s): D21.9 - Benign neoplasm of connective and other soft tissue, unspecified Category: Medical Plan Discussed: Ultrasound findings large fibroid-stable size, w/new onset of smaller fibroid. Options for treatment include medical, surgical, not candidate for uterine ablation due to the size of large fibroid. She declines medical management and does not feel her menstrual cycles warrant treatment at this time and prefers to observe bleeding pattern. Advised to call if cycles increase or length and. Counseled re: Leiomyoma: common pelvic neoplasm. Differential diagnosis-may include but not limited to- leiomyosarcoma which is a rare uterine sarcoma 3-7/100,000, difficult to distinguish from fibroids on ultrasound from uterine sarcoma's. Unlikely any single test will have a highly positive predictive value. Hysterectomy is not recommended for sole purpose of excluding malignant neoplasm. Consult for surgical exploration, medical treatment, other treatments, verses expectant management, pros and cons, risks and benefits. Patient prefers expectant management Expectant management follow up in 6 months, then yearly for stability. Report any AUB. Pelvic pressure, bloating, or pain. Referral to MD if indicated for level of care if indicated. Safe sex and condoms if becomes sexually active. Follow up ultrasound results, and keep scheduled annual exam appointment 10/29/2024. All of her questions and concerns were addressed to the best of my ability and shared decision making. She is agreeable to the plan of care. This note is constructed using voice recognition software. While every effort has been made to ensure accuracy, food consultant errors may have been included. Orders: Orders US pelvic and transvaginal 12/13/24 D21.9 - Benign neoplasm of connective and other soft tissue, unspecified Coding Level of Care Code Est Pt Level 3 (24648) Diagnoses Fibroid D21.9
== END 2024-07-21 16:00 | disposition home or self-care (01) ==
LOC: HO.HWS 15:22
PROVIDERS: PCP Internal Medicine; Visit Provider Advanced Practice Midwife
DX: D21.9 Benign neoplasm of connective and other soft tissue, unspecified (principal)
CPT/HCPCS: 99213

== ENCOUNTER → 2024-07-21 15:22 | Outpatient (BNVA) | payer OTHER, SELFPAY | PROVIDERS: PCP Internal Medicine; Visit Provider Advanced Practice Midwife ==

== ENCOUNTER 2024-12-02 14:09 | Outpatient (AMB) | payer OTHER, SELFPAY ==
--- NOTE | 2024-12-02 14:12 | MHC.OFFVIS ---
Vital Signs 12/02/24 14:13 Height 5 ft 5 in Weight 191 lb BMI 31.8 BP 114/76 Intake Visit Reasons: VISION REHABILITATION THERAPIST annual exam Intake Note: Last mammo 08/2024 @[facility] Industrial Maintenance Tech: Industrial Maintenance Tech Present (Destiny) Allergies hydromorphone [From Dilaudid] Allergy (Intermediate, Verified 12/02/24 14:13) Rash oxycodone Allergy (Intermediate, Verified 12/02/24 14:13) Vomiting Is last menstrual period known: Yes Last menstrual period: 11/18/24 HPI Comments Details: She is a premenopausal woman presenting for annual examination. Doing well with client services manager concerns. History of a large fibroid, has follow up ultrasound scheduled early December. Regular monthly menses heavy 2/5d, not heavier, no pain. Currently is not sexually active. Uncertain if she wants to have children but is still open to the idea if it happens some day. She denies vaginal itching and irritation. STI screening offered; she declined. She tries to eat healthy. Has an appt. with [facility] weight management. No regular exercise. Denies family history of ovarian or colon cancer. FH breast cancer. Mammogram at [facility] 08/29/2024, negative per patient, no copy available. Last Pap smear 2022, negative. [facility]LY [facility] Medical History Fibroid No known health problems Surgical History Hx of wisdom tooth extraction H/O gastric sleeve Family History Mother Diabetes HTN (hypertension) Maternal Aunt Breast cancer Social History Household Members: Family Household Members Other:: sister Housing: House Do you presently have visiting nurse or other home services: No Alcohol intake: never Patient Tobacco Use Status: Never used Tobacco service: No Current occupational status: employed Current occupation: [employer] Female Reproductive History Menstrual Duration of menses: 3-5 days Date of last menstrual period: 11/18/24 control method: none Total pregnancies: 0 Date of last pap smear: 10/10/23 (neg pap and hpv) Review of Systems Const All systems reviewed & are unremarkable except as noted in HPI and below Reports as per HPI Eyes Reports no additional complaints ENT Reports no additional complaints Card Reports no additional complaints Resp Reports no additional complaints GI Reports as per HPI and Reports no additional complaints Reports as per HPI Musc Reports no additional complaints Skin/Breast Reports as per HPI Neuro Reports no additional complaints Psych Reports no additional complaints Endo Reports no additional complaints Aiden/Lymph Reports no additional complaints Aller/Immun Reports no additional complaints Physical Exam Vital Signs: Last Vital Signs BP 114/76 12/02/24 14:13 BMI result Body Mass Index 31.8 Const General: cooperative, healthy appearing, no acute distress, well developed and alert Orientation/consciousness: patient oriented x3 HEENT Head: Yes normal to inspection Eyes General: appearance normal, both eyes and all related structures Neck Neck: Yes normal visual inspection Thyroid: Thyroid normal Chest Chest palpation & inspection: normal inspection of the chest and other (no puckering, dimpling, peau de orange, retraction, discharge, masses) Breast/axilla inspection: normal inspection of the breasts Breast/axilla palpation: normal palpation of the breasts Resp Effort & Inspection: normal respiratory effort GI Inspection: Yes normal to inspection Palpation (GI): Soft to palpation Rectal Exam - Female: deferred General: Yes bladder normal to palpation External Female Exam: normal external appearance and normal appearance of the urethra Speculum Exam - Vagina: normal appearance of the vagina, normal palpation and normal vaginal discharge Speculum Exam - Cervix: normal appearance of the cervix and normal palpation Bimanual exam- vagina & uterus: normal bimanual exam, normal palpation, bladder normal to palpation, normal palpation, non-tender and enlarged Bimanual Exam- Adnexa, other: no masses Skin General skin exam: no rashes or lesions noted Rashes: no rashes Neuro General: patient oriented x3 Cognition (Neuro): normal cognition Extrem General: Yes normal to inspection Psych Attitude: cooperative Thought process: Normal thought process present Assessment & Plan Assessment & Plan (1) Encounter for well woman exam with routine gynecological exam: Code(s): Z01.419 - Encounter for gynecological examination (general) (routine) without abnormal findings Category: Medical (2) Fibroid: Code(s): D21.9 - Benign neoplasm of connective and other soft tissue, unspecified Category: Medical Plan: Discussed the fibroid plan of care is obtaining ultrasound results next visit-appointment to be scheduled today. Follow up pending ultrasound read in the few weeks. Discuss possibly having a referral to [facility] to talk about a myomectomy or other options if she wanted to seek more information. We will confirm decision on her follow up. Plan Discussed: Current recommendations for pap smears per ASCCP guidelines. Breast awareness and periodic breast exams. Mammogram yearly. Maintain a healthy lifestyle including a well balanced diet and routine exercise. Use condoms for STI and prevention. Patient verbalizes understanding and agrees to the plan of care. She was given opportunity to ask questions and all questions were answered to the best of my ability. RTO in one year for annual client services manager examination. This note is constructed using voice recognition software. While every effort has been made to ensure accuracy, tax credit leasing consultant errors may have been included. Coding Level of Care Code Est Pt Prev Care 40-64y(33812) Diagnoses Encounter for well woman exam with routine gynecological exam Z01.419 Fibroid D21.9
[2024-12-02 14:13] VITALS: BP 114/76; BMI 31.8
== END 2024-12-02 15:19 | disposition home or self-care (01) ==
PROVIDERS: PCP Internal Medicine; Visit Provider Advanced Practice Midwife
DX: Z01.419 Encounter for gynecological examination (general) (routine) without abnormal findings (principal); D21.9 Benign neoplasm of connective and other soft tissue, unspecified
CPT/HCPCS: 99396; 99459

== ENCOUNTER 2024-12-13 16:14 | Outpatient (REF) | payer OTHER, SELFPAY ==
--- NOTE | ~2024-12-13 | US_ITS ---
EXAMINATION: US PELVIS CLINICAL INFORMATION: Benign neoplasm of connective and soft tissues COMPARISON: Ultrasound pelvis 06/14/2024 TECHNIQUE: Transabdominal ultrasound pelvis was performed with Doppler. Patient refused transvaginal ultrasound. FINDINGS: Uterus: The uterus is anteverted and measures 9.8 x 5.0 x 8.2 cm. The double wall endometrial thickness is 3.0 mm. The uterus is smooth in contour and has normal myometrial echogenicity. There is a hypoechoic lesion in right body of uterus measuring 7.7 x 5.8 x 5.8 cm. Previously the measured 6.4 x 5.9 x 5.3 cm. A second hypoechoic heterogenous lesion in left body of uterus measures 3.3 x 3.2 x 2.5 cm. Previously it measured 3.0 3.2 x 2.8 cm. These are most suggestive of fibroids. Adnexa: Both ovaries are visualized. There is normal color flow to the adnexa. There is no ovarian torsion. There is no pelvic ascites or fluid collection. Right ovary measures 2.5 x 0.9 x 1.5 cm. There is a simple anechoic exophytic cyst measuring 1.8 x 1.2 x 1.3 cm Left ovary measures 2.6 x 1.7 x 2.2 cm. No focal lesion seen. There is no free fluid in the cul-de-sac. US/US pelvic complete IMPRESSION: 2 heterogeneous uterine fibroids as described above. There are stable compared to last exam 07/08/2024. Simple exophytic right ovarian cyst. New since the last exam. Previously seen left ovarian corpus luteal cyst has resolved. The left ovary is currently unremarkable Electronically signed by: Dennis Posada MD 12/14/2024 07:11 AM EST
--- OUTSIDE RECORDS SUMMARY | 2024-12-13 17:19 | XMS_ITS | Clinical Summary ---
Author Organization 175 [facility] Address [address] [place] [address] Phone Care Team Providers Care Manager Flight Operations Name Role Phone Nirmal Borjas MD Primary Care Provider [phone] Allergies Active Allergy Reactions Criticality Noted Date Comments Hydromorphone 09/22/2023 Oxycodone 09/22/2023 Medications Medication Sig Dispensed Refills Start Date End Date Status acetaminophen (TYLENOL) 500 mg tablet Take 2 tablets (1,000 mg total) by mouth every 8 (eight) hours if needed for moderate pain, headaches, fever - temperature GREATER than 38 C (100.4 F) or mild pain. 05/25/2024 Active ferrous sulfate 325 mg (65 mg elemental iron) tablet Take 1 Tablet by mouth daily. 04/19/2024 Active cyanocobalamin, vitamin B-12, 1,000 mcg tablet, sublingual Place 1 Tablet under the tongue daily. 02/11/2024 Active traZODone (DESYREL) 50 mg tablet Take 1 tablet (50 mg total) by mouth. 02/06/2024 Active acyclovir (ZOVIRAX) 400 mg tablet Take 1 tablet (400 mg total) by mouth 3 (three) times a day. 02/06/2024 Active albuterol HFA (PROAIR HFA ; PROVENTIL HFA ; VENTOLIN HFA) 90 mcg/actuation inhaler 2 puffs. 03/20/2023 Active SUMAtriptan (IMITREX) 50 mg tablet Take 1 tablet (50 mg total) by mouth. 03/20/2023 Active ibuprofen (ADVIL,MOTRIN) 800 mg tablet Take 1 tablet (800 mg total) by mouth. 12/25/2020 Active buPROPion XL (WELLBUTRIN XL) 150 mg 24 hr tablet TAKE 1 TABLET BY MOUTH EVERY MORNING 90 tablet 1 11/30/2024 Active buPROPion XL (WELLBUTRIN XL) 150 mg 24 hr tablet Take 1 tablet (150 mg total) by mouth 1 (one) time each day. 09/02/2024 Discontinued Active Problems Problem Noted Date Diagnosed Date Primary hypertension 09/27/2024 History of COVID-19 03/23/2021 Acute thrombosis of right basilic vein Elevated glucose 12/25/2020 Hypertriglyceridemia 12/25/2020 Insomnia 12/25/2020 Obstructive sleep apnea 02/27/2018 Overview (08/16/2024): [facility] Home Polysomnogram: Date 02/23/2018; AHI 5, Unclassified apneas 0; Obstructive apneas 1; Central apneas 0; Mixed apneas 0; hypopneas 22; average oxygen saturation 96% (lowest 90% without saturations <88% for 5% or more of study) - Obstructive Sleep Apnea - mild; mostly hypopneas; without sleep related hypoventilation by 2018 home polysomnogram. Lumbar disc herniation with radiculopathy 2016 Overview (08/16/2024): 2004 [place] MRI: L4/L5 and L5/S1 with impingement of left S1 nerve root Osteoarthritis of knee 12/27/2016 Overview (08/16/2024): Right: old injury in past Migraine without aura 08/15/2016 Overview (08/16/2024): Dr. Carson Encounters Date Type Department Care Team Description 12/02/2024 4:15 PM EST - 12/02/2024 11:59 PM EST Hospital Encounter [facility] Ultrasound [address] [place] [id number] Calculus of kidney Discharge Disposition: Home or Self Care 10/15/2024 Lab Requisition [facility] - Main Lab [address] [place] [address] Esvin Peter MD Other microscopic hematuria 09/27/2024 2:00 PM EST Office Visit Adult Medicine [address] [address] Nirmal Borjas MD Primary hypertension (Primary Dx); Primary insomnia; Migraine without aura and without status migrainosus, not intractable; Obesity (BMI 30-39.9); S/P gastric sleeve procedure 09/16/2024 11:20 AM EST Consult Gastroenterology - [place] 175 [facility] 175 [facility] [address] [place] [address] Samra Whitehead PA Generalized abdominal pain (Primary Dx) 09/13/2024 7:30 AM EST - 09/13/2024 11:59 PM EST Hospital Encounter [facility] CT Scan [address] [place] [address] Calculus of kidney Discharge Disposition: Home or Self Care from Last 3 Months Immunizations Name Administration Dates Next Due Influenza Quadravalent, MDCK , 0.5ml, with preservative (Flucelvax) 6mo and older 07/27/2017 Influenza trivalent, with preservative (Fluzone; Afluria) 6mo and older 08/11/2020,08/10/2018,07/28/2016,2014 MMR, measles mumps and rubel la Live (Priorix; M-M-R II) 12mo and older 08/15/2020,08/26/2019 Caliopa SARS-CoV-2 COVID-19, mRNA, LNP-S, preservative free 08/02/2021,07/07/2021 Tdap Tetanus diptheria acell ular pertussis (Boostrix; Adacel) 7yo and older 12/12/2016 Medical History Medical History Date Comments Essential hypertension 07/20/2015 DX:Essent ial hypertension History of migraine 12/27/2016 DX:History o f migraine Obesity DX:Obesity Hypertriglyceridemia DX:Hypertri glyceridemia Elevated glucose DX:Elevated glu cose Insomnia DX:Insomnia Family History Medical History Relation Name Comments Asthma Brother Other cancer Maternal Grandfather throat cancer Diabetes Maternal Grandmother Arthritis Mother Diabetes Mother Hypertension Mother Relation Name Status Comments Aunt maternal 60s Alive Brother Maternal Grandfather Maternal Grandmother Mother Social History Tobacco Use Types Packs/Day Years Used Date Smoking Tobacco: Never Smokeless Tobacco: Never Alcohol Use Standard Drinks/Week Comments Yes 0 (1 standard drink = 0.6 oz pur e alcohol) Sex and Gender Information Value Date Recorded Sex Assigned at Female 12/02/2024 4:18 PM EST Gender Identity Female 12/02/2024 4:18 PM EST Sexual Orientation Straight 12/02/2024 4: 18 PM EST Job Start Date Occupation Industry Not on file Not on file Not on file Obstetrics History Last Filed Vital Signs Vital Sign Reading Time Taken Comments Blood Pressure 109/76 09/27/2024 2:18 PM EST Pulse 63 09/27/2024 2:18 PM EST Temperature 36.6 ??C (97.9 ??F) 09/27/2024 2:18 PM ES T Respiratory Rate 14 09/27/2024 2:18 PM EST Oxygen Saturation 99% 09/27/2024 2:18 PM EST Inhaled Oxygen Concentration - - Weight 85.7 kg (189 lb) 09/27/2024 2:18 PM EST Height 165.1 cm (5' 5 ) 09/27/2024 2:18 PM EST Body Mass Index 31.45 09/27/2024 2:18 PM EST Plan of Treatment Upcoming Encounters Date Type Department Care Team (Late st Contact Info) Description 12/16/2024 10:15 AM EST Office Visit Bariatric Surgery - [place] [address] [phone] Zuleyka Rosado MD [address] [address] 05/03/2025 2:00 PM EDT Office Visit Adult Medicine [address] [address] Nirmal Borjas MD [address] [place] [address] Health Maintenance Due Date Last Done Comments Hepatitis B Vaccines (1 of 3 - 19+ 3-dose series) 2000 Cervical Cancer Screening: Pap Smear 2002 Depression Screening 10/19/2022 HIV Screening 10/19/2022 Hepatitis C Screening 10/19/2022 Social Influencers of Health Screening 10/19/2022 COVID-19 Vaccine ( season) 2024 08/02/2021, 07/07/2021 Influenza Vaccine (#1) 2024 , 08/09/2022, 08/22/2021, Additional history exists Hypertension/CHF/CAD Annual BMP Blood Test 08/17/2025 08/17/2024, 04/16/2024 Breast Cancer Screening 08/31/2026 08/31/20 24, 08/31/2024, 08/25/2023, Additional history exists DTaP,Tdap,and Td Vaccines (2 - Td or Tdap) 12/12/2026 12/12/2016 Cholesterol Screening (Lipid Panel) 04/16/2029 04/16/2024 MMR Vaccines Aged Out 08/15/2020, 08/26/2019 No lo nger eligible based on patient's age to complete this topic HIB Vaccines Aged Out No longer eligi ble based on patient's age to complete this topic HPV Vaccines Aged Out No longer eligi ble based on patient's age to complete this topic Hepatitis A Vaccines Aged Out No long er eligible based on patient's age to complete this topic IPV Vaccines Aged Out No longer eligi ble based on patient's age to complete this topic Meningococcal ACWY Vaccine Aged Out N o longer eligible based on patient's age to complete this topic Pneumococcal Vaccine: Pediatrics (0 to 5 Years) and At-Risk Patients (6 to 64 Years) Aged Out No longer eligible based on patient's age to complete this topic RSV Immunization Patients Under 20 months Aged Out No longer eligible based on patient's age to complete this topic Varicella Vaccines Aged Out No longer eligible based on patient's age to complete this topic Procedures Procedure Name Priority Date/Time Associated Diagnosis Comments US RETROPERITONEAL COMPLETE Routine 12/02/2024 5:02 PM EST Calculus of kidney CULTURE URINE Routine 10/15/2024 5:38 PM EST Other microscopic hematuria CT ABDOMEN PELVIS WO CONTRAST Routine 09/13/2024 8:03 AM EST Calculus of kidney SCREENING MAMMOGRAPHY BI 2-VIEW BREAST INC CAD Routine 08/31/2024 4:41 PM EDT Encounter for general adult medical examination without abnormal findings from Last 3 Months or Most Recently Relevant to Health Maintenance Results * US Retroperitoneal Complete (12/02/2024 5:02 PM EST) Anatomical Region Laterality Modality Body Ultrasound 12/07/2024 9:52 AM EST Narrative 12/07/2024 9:55 AM EST INDICATION: Renal stone. FINDINGS: Ultrasound of the kidneys and bladder. CT scan of the abdomen and pelvis from September 13, 2024 reviewed. Bladder demonstrates normal wall thickness. There is no evidence of diverticulum. Right ureteral jet visualized. Nonvisualized left ureteral jet. Pre-void volume is 144cc. Post void volume is 2.6cc. Incidental note made of enlarged uterus with leiomyomatous changes suspected. The right kidney measures 11.2cm and the left kidney measures 11.3cm. No hydronephrosis or nephrolithiasis is noted on either side. Small right renal stone noted on prior CAT scan not visualized. Resolved left-sided hydronephrosis when compared to prior CAT scan. There is normal cortical echogenicity and thickness. There is no evidence of renal mass. CONCLUSION: Resolved left-sided hydronephrosis. Small right renal stone noted on prior CAT scan visualized. -------- FINAL REPORT -------- Dictated By: Henry Borrero Dictated Date: 12/07/2024 09:52 ET Assigned Physician: Henry Borrero Reviewed and Electronically Signed By: Henry Borrero Signed Date: 12/07/2024 09:55 ET Workstation ID: [id number] Transcribed By: Self Edit Transcribed Date: 12/07/2024 09:52 ET Procedure Note Henry Borrero MD - 12/07/2024 INDICATION: Renal stone. FINDINGS: Ultrasound of the kidneys and bladder. CT scan of the abdomenand pelvis from September 13, 2024 reviewed. Bladder demonstrates normal wall thickness. There is no evidence ofdiverticulum. Right ureteral jet visualized. Nonvisualized left ureteraljet. Pre-void volume is 144cc. Post void volume is 2.6cc. Incidental note made of enlarged uterus with leiomyomatous changessuspected. The right kidney measures 11.2cm and the left kidney measures 11.3cm. Nohydronephrosis or nephrolithiasis is noted on either side. Small rightrenal stone noted on prior CAT scan not visualized. Resolved left-sidedhydronephrosis when compared to prior CAT scan. There is normal corticalechogenicity and thickness. There is no evidence of renal mass. CONCLUSION: Resolved left-sided hydronephrosis. Small right renal stone noted on prior CAT scan visualized. -------- FINAL REPORT -------- Dictated By: Henry Borrero Dictated Date: 12/07/2024 09:52 ET Assigned Physician: Henry Borrero Reviewed and Electronically Signed By: Henry Borrero Signed Date: 12/07/2024 09:55 ET Workstation ID: [id number] Transcribed By: Self Edit Transcribed Date: 12/07/2024 09:52 ET Rochelle Sandoval MD [facility] [place]ST[place] * Culture urine (10/15/2024 5:38 PM EST) Culture, Urine >100,000 CFU/mL Mixed urogenital rush, no uropathogens present. Suggest repeat specimen if clinically indicated. 10/17/2024 10:41 AM EST [facility] Urine Urine specimen obtained by clean catch procedure / Unknown 10/15/2024 5:38 PM EST 10/15/2024 5:40 PM EST Esvin Peter MD LAB MICROBIOLOGY - G ENERAL ORDERABLES [facility] [address] [place] [address], [place] [phone] * CT Abdomen Pelvis wo Contrast (09/13/2024 8:03 AM EST) Anatomical Region Laterality Modality Body Computed Tomogra phy 09/13/2024 8:19 AM EST Impressions 09/13/2024 8:33 AM EST 6 mm obstructive left proximal ureter stone with mild hydronephrosis. Nonobstructive 3 mm calculi upper pole right kidney Bulky uterus secondary to a large left fundal fibroid. Degenerative disc changes with spondylosis L4-5 and L5-S1 disc level. -------- FINAL REPORT -------- Dictated By: Dennis Posada Dictated Date: 09/13/2024 08:19 ET Assigned Physician: Dennis Posada Reviewed and Electronically Signed By: Dennis Posada Signed Date: 09/13/2024 08:33 ET Workstation ID: [id number] Transcribed By: Self Edit Transcribed Date: 09/13/2024 08:19 ET Narrative 09/13/2024 8:33 AM EST Examination: CT abdomen and pelvis without contrast. CLINICAL INDICATION: Calculus of kidney. COMPARISON: None. TECHNIQUE: 2.5 mm thin and reformatted 3 mm thin sagittal and coronal images of abdomen and pelvis were obtained without contrast. Scanner: [employer] 64 slice VCT Dose reduction technique: ASIR (Adaptive statistical iterative reconstruction) and/or AEC (automated exposure control) Dose: total exam DLP 1456 mGy/cm. FINDINGS: Lung bases: The there is a 3 mm nodule right lower lobe axial mage 8/3 no additional nodules seen. No acute pneumonic consolidation. There is mild right posterior pleural thickening, nonspecific. The heart size is normal. No pericardial or pleural effusion seen. Liver, ducts and gallbladder: The liver is normal size, contour and density. No focal lesion or intrahepatic ductal dilatation seen. The gallbladder is unremarkable. Spleen: Unremarkable. Pancreas: Unremarkable. Adrenal glands: Unremarkable. Kidneys and ureter: There is a nonobstructive 3 mm calculi upper pole right kidney without calyectasis or hydronephrosis. A 6 mm obstructive left proximal ureter stone with mild hydronephrosis. No radiopaque calculi seen in the left kidney. Lymphovascular structures: The abdominal aorta is of normal caliber. No abnormal size retroperitoneal or mesenteric lymph nodes seen. GI tract: Oral contrast opacified small bowel loops and colon appears unremarkable. Scattered colonic diverticula are noted. Appendix is normal caliber. There is gastric sleeve surgery changes noted. No free air, inflammatory process or free fluid. Abdominal wall: Tiny umbilical hernia containing fat. Pelvis: The uterus is anteverted and appears slightly bulky. Slight hyperdense area seen in left fundus measuring 5.9 x 7.2 x 7.48 cm suggestive of a fibroid. Scattered phleboliths are seen in the pelvis. The bladder is compressed from enlarged uterus. No free fluid seen. Osseous structures: There is mild degenerative disc changes L4-5, L5/S1 disc levels with ventral and posterior spondylosis. No aggressive lytic or sclerotic process seen. Procedure Note Dennis Posada MD - 09/13/2024 Examination: CT abdomen and pelvis without contrast. CLINICAL INDICATION: Calculus of kidney. COMPARISON: None. TECHNIQUE: 2.5 mm thin and reformatted 3 mm thin sagittal and coronalimages of abdomen and pelvis were obtained without contrast. Scanner: [employer] 64 slice VCT Dose reduction technique: ASIR (Adaptive statistical iterativereconstruction) and/or AEC (automated exposure control) Dose: total exam DLP 1456 mGy/cm. FINDINGS: Lung bases: The there is a 3 mm nodule right lower lobe axial mage 8/3 noadditional nodules seen. No acute pneumonic consolidation. There is mildright posterior pleural thickening, nonspecific. The heart size is normal.No pericardial or pleural effusion seen. Liver, ducts and gallbladder: The liver is normal size, contour anddensity. No focal lesion or intrahepatic ductal dilatation seen. Thegallbladder is unremarkable. Spleen: Unremarkable. Pancreas: Unremarkable. Adrenal glands: Unremarkable. Kidneys and ureter: There is a nonobstructive 3 mm calculi upper poleright kidney without calyectasis or hydronephrosis. A 6 mm obstructiveleft proximal ureter stone with mild hydronephrosis. No radiopaque calculiseen in the left kidney. Lymphovascular structures: The abdominal aorta is of normal caliber. Noabnormal size retroperitoneal or mesenteric lymph nodes seen. GI tract: Oral contrast opacified small bowel loops and colon appearsunremarkable. Scattered colonic diverticula are noted. Appendix is normalcaliber. There is gastric sleeve surgery changes noted. No free air,inflammatory process or free fluid. Abdominal wall: Tiny umbilical hernia containing fat. Pelvis: The uterus is anteverted and appears slightly bulky. Slighthyperdense area seen in left fundus measuring 5.9 x 7.2 x 7.48 cmsuggestive of a fibroid. Scattered phleboliths are seen in the pelvis. Thebladder is compressed from enlarged uterus. No free fluid seen. Osseous structures: There is mild degenerative disc changes L4-5, L5/S1disc levels with ventral and posterior spondylosis. No aggressive lytic orsclerotic process seen. IMPRESSION: 6 mm obstructive left proximal ureter stone with mild hydronephrosis. Nonobstructive 3 mm calculi upper pole right kidney Bulky uterus secondary to a large left fundal fibroid. Degenerative discchanges with spondylosis L4-5 and L5-S1 disc level. -------- FINAL REPORT -------- Dictated By: Dennis Posada Dictated Date: 09/13/2024 08:19 ET Assigned Physician: Dennis Posada Reviewed and Electronically Signed By: Dennis Posada Signed Date: 09/13/2024 08:33 ET Workstation ID: [id number] Transcribed By: Self Edit Transcribed Date: 09/13/2024 08:19 ET Esvin Peter MD IMG CT PROCEDURES * SCREENING MAMMOGRAPHY BI 2-VIEW BREAST INC CAD (08/31/2024 4:41 PM EDT) Anatomical Region Laterality Modality Radiographic Rubia ging 08/25/2023 4:29 PM EDT Narrative 09/01/2024 10:55 AM EDT This is a summary report. The complete report is available in the patient's medical record. If you cannot access the medical record, please contact the sending organization for a detailed fax or copy. Full field digital screening tomosynthesis mammography, reviewed with CAD and compared to previous. The breasts are composed of fatty and fibroglandular tissue. ??No suspicious mass, architectural distortion or suspicious calcifications are identified. IMPRESSION: : No mammographic evidence of malignancy. BIRADS 1-Negative; N. Breast density: The breasts have scattered areas of fibroglandular density. 5 year breast cancer risk assessment 0.5 % Lifetime breast cancer risk assessment 7.7 % Breast cancer risk category Low (<15%) Location: [facility], [address] [place] [address], [address], [phone] Procedure Note Jennifer Goode MD - 10/04/2024 This is a summary report. The complete report is available in thepatient's medical record. If you cannot access the medical record, pleasecontact the sending organization for a detailed fax or copy. Full field digital screening tomosynthesis mammography, reviewed with CADand compared to previous. The breasts are composed of fatty andfibroglandular tissue. No suspicious mass, architectural distortion orsuspicious calcifications are identified. IMPRESSION: : No mammographic evidence of malignancy. BIRADS 1-Negative; N. Breast density: The breasts have scattered areas of fibroglandulardensity. 5 year breast cancer risk assessment 0.5 % Lifetime breast cancer risk assessment 7.7 % Breast cancer risk category Low (<15%) Location: [facility], [address] [place] [address], [address], [phone] Nirmal Borjas MD IMG XR PROCEDURES from Last 3 Months or Most Recently Relevant to Health Maintenance Care Teams Manager Flight Operations Relationship Specialty Start Date End Date Nirmal Borjas MD [address] [place] [id number] PCP - General Internal Medicine 09/07/24
--- OUTSIDE RECORDS SUMMARY | 2024-12-13 17:19 | XMS_ITS | Encounter Summary ---
Author Organization [facility] Address [address] [place] [address] Care Team Providers Care Senior Web Services Developer Name Role Phone Nirmal Borjas MD Primary Care Provider [phone] Reason for Referral * Imaging (Routine) - Closed Specialty Diagnoses / Procedures Referred By Gisell soto Referred To Contact Radiology Diagnoses Calculus of kidney Procedures US Retroperitoneal Complete Rochelle Sandoval MD [address] [address] Referral ID Status Reason Start Date Expiration Date Visits Re quested Visits Authorized [id number] Closed 11/01/2024 11/01/2025 1 1 Reason for Visit * Imaging (Routine) - Closed Specialty Diagnoses / Procedures Referred By Gisell soto Referred To Contact Radiology Diagnoses Calculus of kidney Procedures US Retroperitoneal Rochelle Jimenes MD [address] [address] Referral ID Status Reason Start Date Expiration Date Visits Re quested Visits Authorized [id number] Closed 11/01/2024 11/01/2025 1 1 Encounter Details Date Type Department Care Team (Latest Contact Info) Description 12/02/2024 4:15 PM EST - 12/02/2024 11:59 PM EST Hospital Encounter [facility] Ultrasound [address] [place] [address] Calculus of kidney Discharge Disposition: Home or Self Care Social History Tobacco Use Types Packs/Day Years [...] file Not on file Not on file documented as of this encounter Medications at Time of Discharge Medication Sig Dispensed Refills Start Date End Date acetaminophen (TYLENOL) 500 mg tablet Take 2 tablets (1,000 mg total) by mouth every 8 (eight) hours if needed for moderate pain, headaches, fever - temperature GREATER than 38 C (100.4 F) or mild pain. 05/25/2024 acyclovir (ZOVIRAX) 400 mg tablet Take 1 tablet (400 mg total) by mouth 3 (three) times a day. 02/06/2024 albuterol HFA (PROAIR HFA ; PROVENTIL HFA ; VENTOLIN HFA) 90 mcg/actuation inhaler 2 puffs. 03/20/2023 buPROPion XL (WELLBUTRIN XL) 150 mg 24 hr tablet TAKE 1 TABLET BY MOUTH EVERY MORNING 90 tablet 1 11/30/2024 cyanocobalamin, vitamin B-12, 1,000 mcg tablet, sublingual Place 1 Tablet under the tongue daily. 02/11/2024 ferrous sulfate 325 mg (65 mg elemental iron) tablet Take 1 Tablet by mouth daily. 04/19/2024 05/14/2025 ibuprofen (ADVIL,MOTRIN) 800 mg tablet Take 1 tablet (800 mg total) by mouth. 12/25/2020 SUMAtriptan (IMITREX) 50 mg tablet Take 1 tablet (50 mg total) by mouth. 03/20/2023 traZODone (DESYREL) 50 mg tablet Take 1 tablet (50 mg total) by mouth. 02/06/2024 documented as of this encounter Discharge Disposition Disposition Code Departure Means Destination Home or Self Care documented in this encounter Plan of Treatment Upcoming Encounters Date Type Department Care Team (Late st Contact Info) Description 12/16/2024 10:15 AM EST Office Visit Bariatric Surgery - [place] 175 [facility] [address] [place] [address] Zuleyka Rosado MD 175 [facility] [address] [place] [address] 05/03/2025 2:00 PM EDT Office Visit Adult Medicine [facility] [address] [place] [address] Nirmal Borjas MD [address] [place] [address] documented as of this encounter Procedures Procedure Name Priority Date/Time Associated Diagnosis Comments US RETROPERITONEAL COMPLETE Routine 12/02/2024 5:02 PM EST Calculus of kidney documented in this encounter Results * US Retroperitoneal Complete (12/02/2024 5:02 [...] Signed Date: 12/07/2024 09:55 ET Workstation ID: [id number] Transcribed By: Self Edit Transcribed Date: 12/07/2024 [...] Signed Date: 12/07/2024 09:55 ET Workstation ID: [id number] Transcribed By: Self Edit Transcribed Date: 12/07/2024 09:52 ET Rochelle Sandoval MD IMG US PROCE DURES documented in this encounter Visit Diagnoses Diagnosis Calculus of kidney documented in this encounter Care Teams Senior Web Services Developer Relationship Specialty Start Date End Date Nirmal Borjas MD [address] [place] [id number] PCP - General Internal Medicine 09/07/24 documented as of this encounter
--- OUTSIDE RECORDS SUMMARY | 2024-12-13 17:19 | XMS_ITS | Encounter Summary ---
Author Organization [facility] Address [address] [place] [address] Care Team Providers Care Asphalt Plant Laborer Name Role Phone Nirmal Borjas MD Primary Care Provider [phone] Encounter Details Date Type Department Care Team (Late Contact Info) Description 08/16/2024 4:30 PM EDT Hospital Encounter TH HISTORIC ENCOUNTERS EASTERN CONVERSION ONLY Jerry Eisenberg PA [address] [place] [address] Social History Tobacco Use Types Packs/Day Years [...] on file documented as of this encounter Plan of Treatment Upcoming Encounters Date Type Department Care Team (Late Contact Info) Description 12/16/2024 10:15 AM EST Office Visit Bariatric Surgery - [place] [address] [phone] Zuleyka Rosado MD [address] [address] 05/03/2025 2:00 PM EDT Office Visit Adult Medicine [place] [address] [place] [address] Nirmal Borjas MD 4 [place] [address] documented as of this encounter Visit Diagnoses Not on filedocumented in this encounter Care Teams Asphalt Plant Laborer Relationship Specialty Start Date End Date Nirmal Borjas MD PCP - General Internal Medicine 07/06/15 09/06/24 documented as of this encounter
--- OUTSIDE RECORDS SUMMARY | 2024-12-13 17:19 | XMS_ITS | Encounter Summary ---
[facility] Organization [facility] Address [address] [place] [address] Care Team Providers Care Director Financial Systems Name Role Phone Nirmal Borjas MD Primary Care Provider [phone] Encounter Details Date Type Department Care Team (Late st Contact Info) Description 10/15/2024 Lab Requisition [facility] - Main Lab [address] [facility] [place] [phone] Esvin Peter MD [address] [facility] [address] [place] [phone] Other microscopic hematuria Social History Tobacco Use Types Packs/Day Years [...] AM EST Office Visit Bariatric Surgery - [place] 175 [facility] [address] [place] [address] Zuleyka Rosado MD 175 [facility] 120 [place] [address] 05/03/2025 2:00 PM EDT Office Visit Adult Medicine [facility] [address] [place] [address] Nirmal Borjas MD [address] [place] [address] documented as of this encounter Procedures Procedure Name Priority Date/Time Associated Diagnosis Comments CULTURE URINE Routine 10/15/2024 5:38 PM EST Other microscopic hematuria documented in this encounter Results * Culture urine (10/15/2024 5:38 PM EST) Culture, Urine >100,000 CFU/mL Mixed urogenital rush, no uropathogens present. Suggest repeat specimen if clinically indicated. 10/17/2024 10:41 AM EST [facility] Urine Urine specimen obtained by clean catch procedure / Unknown 10/15/2024 5:38 PM EST 10/15/2024 5:40 PM EST Esvin Peter MD LAB MICROBIOLOGY - G ENERAL ORDERABLES [facility] [address] [place] [address], documented in this encounter Visit Diagnoses Diagnosis Other microscopic hematuria documented in this encounter Care Teams Director Financial Systems Relationship Specialty Start Date End Date Nirmal Borjas MD [address] [place] [address] PCP - General Internal Medicine 09/07/24 documented as of this encounter
== END 2024-12-13 16:15 | disposition home or self-care (01) ==
LOC: HO.US 16:14
PROVIDERS: PCP Internal Medicine; Visit Provider Advanced Practice Midwife
DX: D21.9 Benign neoplasm of connective and other soft tissue, unspecified (principal)
CPT/HCPCS: 76856

== ENCOUNTER 2025-01-11 15:28 | Outpatient (AMB) | payer OTHER, SELFPAY ==
--- NOTE | 2025-01-11 15:31 | A.OFFVIS_ITS ---
Intake Visit Reasons: US follow up Torque Tester: Torque Tester Present Allergies hydromorphone [From Dilaudid] Allergy (Intermediate, Verified 01/11/25 15:32) Rash oxycodone Allergy (Intermediate, Verified 01/11/25 15:32) Vomiting Is last menstrual period known: Yes HPI Comments Details: Patient is here today for a follow up pelvic ultrasound, history of uterine fibroids. She reports normal menses pattern. PFSH Medical History Fibroid No known health problems Surgical History Hx of wisdom tooth extraction H/O gastric sleeve Family History Mother Diabetes HTN (hypertension) Maternal Aunt Breast cancer Social History Household Members: Family Household Members Other:: sister Housing: House Do you presently have visiting nurse or other home services: No Alcohol intake: never Patient Tobacco Use Status: Never used Tobacco service: No Current occupational status: employed Current occupation: [employer] Review of Systems Const All systems reviewed & are unremarkable except as noted in HPI and below Endo Reports no additional complaints Physical Exam Const General: cooperative, healthy appearing and no acute distress Psych Appearance: well kempt Attitude: cooperative Thought process: Normal thought process present Results Reviewed Results Reviewed: [address] [address] Ultrasound Report Signed Patient: Caterina García MR#: [id number] : 1980 Acct:[id number] Age/Sex: 43 / F ADM Date: 12/13/24 Loc: HO.US Attending Dr: Bonnie Abdi CNM Ordering Physician: Bonnie Abdi CNM Date of Service: 12/13/24 Procedure(s): US pelvic complete Accession Number(s): [id number] cc: Nirmal Borjas III, MD; Bonnie Abdi CNM~ EXAMINATION: US PELVIS CLINICAL INFORMATION: Benign neoplasm of connective and soft tissues COMPARISON: Ultrasound pelvis 06/14/2024 TECHNIQUE: Transabdominal ultrasound pelvis was performed with Doppler. Patient refused transvaginal ultrasound. FINDINGS: Uterus: The uterus is anteverted and measures 9.8 x 5.0 x 8.2 cm. The double wall endometrial thickness is 3.0 mm. The uterus is smooth in contour and has normal myometrial echogenicity. There is a hypoechoic lesion in right body of uterus measuring 7.7 x 5.8 x 5.8 cm. Previously the measured 6.4 x 5.9 x 5.3 cm. A second hypoechoic heterogenous lesion in left body of uterus measures 3.3 x 3.2 x 2.5 cm. Previously it measured 3.0 3.2 x 2.8 cm. These are most suggestive of fibroids. Adnexa: Both ovaries are visualized. There is normal color flow to the adnexa. There is no ovarian torsion. There is no pelvic ascites or fluid collection. Right ovary measures 2.5 x 0.9 x 1.5 cm. There is a simple anechoic exophytic cyst measuring 1.8 x 1.2 x 1.3 cm Left ovary measures 2.6 x 1.7 x 2.2 cm. No focal lesion seen. There is no free fluid in the cul-de-sac. US/US pelvic complete IMPRESSION: 2 heterogeneous uterine fibroids as described above. There are stable compared to last exam 07/08/2024. Simple exophytic right ovarian cyst. New since the last exam. Previously seen left ovarian corpus luteal cyst has resolved. The left ovary is currently unremarkable Electronically signed by: Dennis Posada MD 12/14/2024 07:11 AM [facility] Dictated By: Dennis Posada MD Signed By: <Electronically signed by Dennis Posada MD in OV> 12/14/24 0711 DD/ 1616 TD/TT: 12/13/24 1620 Clinical Documentation Improvement Specialist: KRISTINE Assessment & Plan Assessment & Plan (1) Fibroid: Code(s): D21.9 - Benign neoplasm of connective and other soft tissue, unspecified Category: Medical Plan: Counseled re: Leiomyoma: common pelvic neoplasm. Differential diagnosis-may include but not limited to- leiomyosarcoma which is a rare uterine sarcoma 3- 7/100,000, difficult to distinguish from fibroids on ultrasound from uterine sarcoma's. Unlikely any single test will have a highly positive predictive value. Hysterectomy is not recommended for sole purpose of excluding malignant neoplasm. Consult for surgical exploration, medical treatment, other treatments, verses expectant management, pros and cons, risks and benefits. Expectant management follow up in 6 months, then yearly for stability. Patient prefers to proceed with expectant management. Report any AUB, pelvic pressure, bloating, or pain. Referral to MD if indicated for level of care if indicated. (2) Encounter to discuss test results: Code(s): Z71.2 - Person consulting for explanation of examination or test findings Plan Discussed: Ultrasound findings 1 large fibroid 7.7 cm, and smaller 3.3 cm, right-sided benign cyst. The patient expressed understanding and agreement with the plan of care. All of her questions and concerns were addressed to the best of my ability. This note is constructed using voice recognition software. While every effort has been made to ensure accuracy, house mover supervisor errors may have been included. Orders: Orders US pelvic and transvaginal 06/20/25 D21.9 - Benign neoplasm of connective and other soft tissue, unspecified Coding Level of Care Code Est Pt Level 3 (95096) Diagnoses Fibroid D21.9 Encounter to discuss test results Z71.2
--- OUTSIDE RECORDS SUMMARY | 2025-01-11 19:33 | XMS_ITS | Encounter Summary ---
Author Organization [facility] Address [address] [place] [address] Care Team Providers Care Practice Performance Manager Name Role Phone Nirmal Borjas MD Primary Care Provider [phone] Encounter Details Date Type Department Care Team (Late st Contact Info) Description 10/15/2024 Lab Requisition [facility] - Main Lab [address] [facility] [place] [phone] Esvin Peter MD [address] [facility] [address] [place] [phone] Other microscopic hematuria Social History Tobacco Use [...] Department Care Team (Late Contact Info) Description 03/08/2025 4:15 PM EDT Office Visit Bariatric Surgery - [place] [address] [facility] [address] [place] [phone] Zuleyak Rosado MD 175 [facility] 120 [place] [address] 05/03/2025 2:00 PM EDT Office Visit Adult Medicine [facility] [address] [place] [address] Nirmal Borjas MD [address] [place] [address] documented as of this encounter Procedures Procedure Name Priority Date/Time Associated Diagnosis Comments CULTURE URINE Routine 10/15/2024 5:38 PM EST Other microscopic hematuria documented in this encounter Results * Culture urine (10/15/2024 5:38 PM EST) Culture, Urine >100,000 CFU/mL Mixed urogenital rush, no uropathogens present. Suggest repeat specimen if clinically indicated. 10/17/2024 10:41 AM EST [facility] Urine Urine specimen obtained by clean catch procedure / Unknown 10/15/2024 5:38 PM EST 10/15/2024 5:40 PM EST us Esvin Peter MD LAB MICROBIOLOGY - GENERAL ORDER DOMINIK Final Result [facility] [address] [place] [address], documented in this encounter Visit Diagnoses Diagnosis Other microscopic hematuria documented in this encounter Care Teams Practice Performance Manager Relationship Specialty Start Date End Date Nirmal Borjas MD [address] [place] [id number] PCP - General Internal Medicine 09/07/24 documented as of this encounter
--- OUTSIDE RECORDS SUMMARY | 2025-01-11 19:33 | XMS_ITS | Encounter Summary ---
[facility] Organization [facility] Address [address] [place] [address] Care Team Providers Care Electrical Assembly Technician Name Role Phone Nirmal Borjas MD Primary Care Provider [phone] Encounter Details Date Type Department Care Team (Late st Contact Info) Description 08/16/2024 4:30 PM EDT Hospital Encounter TH HISTORIC ENCOUNTERS EASTERN CONVERSION ONLY Jerry Eisenberg PA [address] [place] [address] Social History Tobacco Use Types Packs/Day Years [...] Care Team (Late st Contact Info) Description 03/08/2025 4:15 PM EDT Office Visit Bariatric Surgery - [place] [address] [phone] Zuleyka Rosado MD [address] [address] 05/03/2025 2:00 PM EDT Office Visit Adult Medicine [facility] [address] [place] [address] Nirmal Borjas MD [address] [place] [address] documented as of this encounter Visit Diagnoses Not on filedocumented in this encounter Care Teams Electrical Assembly Technician Relationship Specialty Start Date End Date Nirmal Borjas MD PCP - General Internal Medicine 07/06/15 09/06/24 documented as of this encounter
--- OUTSIDE RECORDS SUMMARY | 2025-01-11 19:33 | XMS_ITS | Clinical Summary ---
Author Organization 175 [facility] Address [address] [place] [address] Phone Care Team Providers Care Garment Supervisor Name Role Phone Nirmal Borjas MD Primary Care Provider [phone] Allergies Active Allergy Reactions Criticality Noted Date Comments Hydromorphone 09/22/2023 Oxycodone 09/22/2023 Medications acetaminophen (TYLENOL) 500 mg tablet Take 2 tablets (1,000 mg total) by mouth every 8 (eight) hours if needed for moderate pain, headaches, fever - temperature GREATER than 38 C (100.4 F) or mild pain. 4 Active ferrous sulfate 325 mg (65 mg elemental iron) tablet Take 1 Tablet by mouth daily. 4 05/14/20 25 Active cyanocobalamin, vitamin B-12, 1,000 mcg tablet, sublingual Place 1 Tablet under the tongue daily. 4 Active traZODone (DESYREL) 50 mg tablet Take 1 tablet (50 mg total) by mouth. 4 Active acyclovir (ZOVIRAX) 400 mg tablet Take 1 tablet (400 mg total) by mouth 3 (three) times a day. 4 Active albuterol HFA (PROAIR HFA ; PROVENTIL HFA ; VENTOLIN HFA) 90 mcg/actuation inhaler 2 puffs. 3 Active SUMAtriptan (IMITREX) 50 mg tablet Take 1 tablet (50 mg total) by mouth. 3 Active ibuprofen (ADVIL,MOTRIN) 800 mg tablet Take 1 tablet (800 mg total) by mouth. 1 Active buPROPion XL (WELLBUTRIN XL) 150 mg 24 hr tablet TAKE 1 TABLET BY MOUTH EVERY MORNING 90 tablet 1 5 Active Active Problems Problem Noted Date Diagnosed Date Primary hypertension 09/27/2024 History of COVID-19 03/23/2021 Acute thrombosis of right basilic vein 1 Elevated glucose 12/25/2020 Hypertriglyceridemia 12/25/2020 Insomnia 12/25/2020 Obstructive sleep apnea 02/27/2018 Overview (08/16/2024): [facility] Home Polysomnogram: Date 02/23/2018; AHI 5, Unclassified apneas 0; Obstructive apneas 1; Central apneas 0; Mixed apneas 0; hypopneas 22; average oxygen saturation 96% (lowest 90% without saturations <88% for 5% or more of study) - Obstructive Sleep Apnea - mild; mostly hypopneas; without sleep related hypoventilation by 2018 home polysomnogram. Lumbar disc herniation with radiculopathy 2016 Overview (08/16/2024): 2004 [place] [facility]: L4/L5 and L5/S1 with impingement of left S1 nerve root Osteoarthritis of knee 12/27/2016 Overview (08/16/2024): Right: old injury in past Migraine without aura 08/15/2016 Overview (08/16/2024): Dr. Carson Encounters Date Type Department Care Team Description 12/02/2024 4:15 PM EST - 12/02/2024 11:59 PM EST Hospital Encounter [facility] Ultrasound [address] [place] [address] Calculus of kidney Discharge Disposition: Home or Self Care 10/15/2024 Lab Requisition [facility] - Main Lab [address] [facility] [place] [address] Esvin Peter MD Other microscopic hematuria from Last 3 Months Immunizations Name Administration Dates Next Due Influenza Quadravalent, MDCK , 0.5ml, with preservative (Flucelvax) 6mo and older 07/27/2017 Influenza trivalent, with preservative (Fluzone; Afluria) 6mo and older 08/11/2020,08/10/2018,07/28/2016,2014 MMR, measles mumps and rubel la Live (Priorix; M-M-R II) 12mo and older 08/15/2020,08/26/2019 NXTM SARS-CoV-2 COVID-19, mRNA, LNP-S, preservative free 08/02/2021,07/07/2021 [...] Orientation Straight 12/02/2024 4: 18 PM EST Obstetrics History Last Filed Vital Signs Vital [...] PM EDT Office Visit Bariatric Surgery - [place] 175 [facility] [address] [place] [address] Zuleyka Rosado MD 175 [facility] [address] [place] [address] 05/03/2025 2:00 PM EDT Office Visit Adult Medicine [facility] [address] [place] [address] Nirmal Borjas MD [address] [place] [address] Health Maintenance Due Date Last Done Comments [...] patient's age to complete this topic Meningococcal B Vacine Aged Out No lo nger eligible based on patient's [...] Procedure Name Priority Date/Time Associated Diagnosis Comments EXTERNAL ULTRASOUND REPORT 12/14/2024 US RETROPERITONEAL COMPLETE Routine 12/02/2024 5:02 PM EST Calculus of kidney CULTURE URINE Routine 10/15/2024 5:38 PM EST Other microscopic hematuria SCREENING MAMMOGRAPHY BI 2-VIEW BREAST INC CAD Routine 08/31/2024 4:41 PM EDT Encounter for general adult medical examination without abnormal findings from Last 3 Months or Most Recently Relevant to Health Maintenance Results * External Ultrasound Report (12/14/2024) Anatomical Region Laterality Modality Ultrasound us Provider Onbase MD [place] US PROCEDURES Final Resul t * US Retroperitoneal Complete (12/02/2024 5:02 PM [...] Signed Date: 12/07/2024 09:55 ET Workstation ID: [id number] Transcribed By: Self Edit Transcribed Date: 12/07/2024 [...] visualized. -------- FINAL REPORT -------- Dictated By: Adair, Parshant Dictated Date: 12/07/2024 09:52 ET Assigned Physician: Henry Borrero Reviewed and Electronically Signed By: Henry Borrero Signed Date: 12/07/2024 09:55 ET Workstation ID: [id number] Transcribed By: Self Edit Transcribed Date: 12/07/2024 09:52 ET Rochelle Sandoval MD IMG US PROCEDURES Fi nal Result * Culture urine (10/15/2024 5:38 PM EST) Culture, Urine >100,000 CFU/mL Mixed urogenital rush, no uropathogens present. Suggest repeat specimen if clinically indicated. 10/17/2024 10:41 AM EST [facility] Urine Urine specimen obtained by clean catch procedure / Unknown 10/15/2024 5:38 PM EST 10/15/2024 5:40 PM EST Esvin Peter MD LAB MICROBIOLOGY - GENERAL ORDER DOMINIK Final Result [facility] [address] [place] [address], * SCREENING MAMMOGRAPHY BI 2-VIEW BREAST INC [...] Breast cancer risk category Low (<15%) Location: [facility], [address] [place] [address], [address], [phone] Procedure Note Jennifer Goode MD - 10/04/2024 [...] Breast cancer risk category Low (<15%) Location: [facility], [address] [place] [address], [address], [phone] Nirmal Borjas MD IMG XR PROCEDURES Final Result from Last 3 Months or Most Recently Relevant to Health Maintenance Insurance [employer] Care Teams Garment Supervisor Relationship Specialty Start Date End Date Nirmal Borjas MD [address] [place] [id number] PCP - General Internal Medicine 09/07/24
== END 2025-01-11 15:56 | disposition home or self-care (01) ==
LOC: HO.HWS 15:28
PROVIDERS: PCP Internal Medicine; Visit Provider Advanced Practice Midwife
DX: D21.9 Benign neoplasm of connective and other soft tissue, unspecified (principal); Z71.2 Person consulting for explanation of examination or test findings
CPT/HCPCS: 99213

== ENCOUNTER → 2025-01-11 15:28 | Outpatient (BNVA) | payer OTHER, SELFPAY | PROVIDERS: PCP Internal Medicine; Visit Provider Advanced Practice Midwife ==

== ENCOUNTER 2025-06-20 15:56 | Outpatient (REF) | payer OTHER, SELFPAY ==
--- NOTE | ~2025-06-20 | US_ITS ---
EXAMINATION: US PELVIS HISTORY: D21.9 - Benign neoplasm of connective and other soft tissue, unspecified COMPARISON: Comparison is made with the prior examination dated 12/13/2024. TECHNIQUE: Transabdominal and endovaginal real-time 2D mota-scale ultrasound was performed. FINDINGS: Uterus: The uterus is normal in size, measuring 10.4 x 5.0 x 6.2 cm. Myometrium has a normal echotexture. Again seen is a right-sided fibroid measuring 2.3 x 1.7 x 2.5 cm (previously 3.3 x 3.2 x 2.5 cm), and a left fundal fibroid measuring 7.0 x 6.0 x 5.4 cm (previously 7.7 x 5.8 x 5.8 cm). Endometrium: The endometrial stripe measures 5 mm in thickness. Right ovary: The right ovary measures 2.7 x 1.1 x 1.5 cm. The right ovary is normal in size and echotexture. Left ovary: The left ovary measures 2.4 x 1.3 x 2.1 cm. The left ovary is normal in size and echotexture. Pelvic fluid: none. US/US pelvic complete IMPRESSION: Fibroid uterus as described, without significant change from the prior study. Electronically signed by: Lauro Kent MD 06/21/2025 07:09 AM EDT
--- OUTSIDE RECORDS SUMMARY | 2025-06-20 16:00 | XMS_ITS | Clinical Summary ---
Author Organization 175 [facility] Address [address] [place] [address] Phone Care Team Providers Care Media Liaison Officer Name Role Phone Nirmal Borjas MD Primary Care Provider [phone] Allergies Active Allergy Reactions Criticality Noted Date Comments Hydromorphone 09/22/2023 Oxycodone 09/22/2023 Medications acetaminophen (TYLENOL) 500 mg tablet Take 2 tablets (1,000 mg total) by mouth every 8 (eight) hours if needed for moderate pain, headaches, fever - temperature GREATER than 38 C (100.4 F) or mild pain. 05/25/20 24 Active cyanocobalamin, vitamin B-12, 1,000 mcg tablet, sublingual Place 1 Tablet under the tongue daily. 02/11/20 24 Active albuterol HFA (PROAIR HFA ; PROVENTIL HFA ; VENTOLIN HFA) 90 mcg/actuation inhaler 2 puffs. 03/20/20 23 Active SUMAtriptan (IMITREX) 50 mg tablet Take 1 tablet (50 mg total) by mouth. 03/20/20 23 Active ibuprofen (ADVIL,MOTRIN) 800 mg tablet Take 1 tablet (800 mg total) by mouth. 12/25/19 21 Active buPROPion XL (WELLBUTRIN XL) 150 mg 24 hr tablet TAKE 1 TABLET BY MOUTH EVERY MORNING 90 tablet 1 11/30/19 25 Active phentermine 30 mg capsule Take 1 capsule (30 mg total) by mouth 1 (one) time each day before breakfast. Max Daily Amount: 30 mg 30 each 06/03/20 25 025 Active acyclovir (ZOVIRAX) 400 mg tablet TAKE 1 TABLET BY MOUTH THREE TIMES A DAY 45 tablet 06/07/20 25 Active traZODone (DESYREL) 50 mg tablet TAKE 1 TABLET BY MOUTH EVERYDAY AT BEDTIME 90 tablet 1 06/07/20 25 Active traZODone (DESYREL) 50 mg tablet Take 1 tablet (50 mg total) by mouth. 02/06/20 24 025 Discontinued acyclovir (ZOVIRAX) 400 mg tablet Take 1 tablet (400 mg total) by mouth 3 (three) times a day. 02/06/20 025 Discontinued phentermine 15 mg capsuleIndicati ons:Class 1 obesity due to excess calories with body mass index (BMI) of 30.0 to 30.9 in adult, unspecified whether serious comorbidity present Take 1 capsule (15 mg total) by mouth 1 (one) time each day before breakfast. Max Daily Amount: 15 mg 30 each 03/08/20 025 Discontinued Active Problems Problem Noted Date Diagnosed Date Primary hypertension 09/27/2024 History of COVID-19 03/23/2021 Acute thrombosis of right basilic vein Elevated glucose 12/25/2020 Hypertriglyceridemia 12/25/2020 Insomnia 12/25/2020 Obstructive sleep apnea 02/27/2018 Overview (08/16/2024): [facility] Home Polysomnogram: Date 02/23/2018; AHI 5, Unclassified apneas 0; Obstructive apneas 1; Central apneas 0; Mixed apneas 0; hypopneas 22; average oxygen saturation 96% (lowest 90% without saturations <88% for 5% or more of study) - Obstructive Sleep Apnea - mild; mostly hypopneas; without sleep related hypoventilation by 2018 home polysomnogram. Lumbar disc herniation with radiculopathy 2016 Overview (08/16/2024): 2004 [place] MRI: L4/L5 and L5/S1 with impingement of left S1 nerve root Osteoarthritis of knee 12/27/2016 Overview (08/16/2024): Right: old injury in past Migraine without aura 08/15/2016 Overview (08/16/2024): Dr. Carson Encounters Date Type Department Care Team Description 03/28/2025 Telephone Bariatric Surgery - [address] [place] [address] Zuleyka Rosado MD from Last 3 Months Immunizations Name Administration Dates Next Due Influenza Quadravalent, MDCK , 0.5ml, with preservative (Flucelvax) 6mo and older 07/27/2017 Influenza trivalent, with preservative (Fluzone; Afluria) 6mo and older 08/11/2020,08/10/2018,07/28/2016,2014 MMR, measles mumps and rubel la Live (Priorix; M-M-R II) 12mo and older 08/15/2020,08/26/2019 Pfizer SARS-CoV-2 COVID-19, mRNA, LNP-S, preservative free 08/02/2021,07/07/2021 [...] Sign Reading Time Taken Comments Blood Pressure 119/74 03/08/2025 4:31 PM EDT Pulse 71 03/08/2025 4:31 PM EDT Temperature 36.6 C (97.8 F) 03/08/2025 4:31 PM EDT Respiratory Rate 14 09/27/2024 2:18 PM EST Oxygen Saturation 99% 09/27/2024 2:18 PM EST Inhaled Oxygen Concentration - - Weight 82.6 kg (182 lb) 03/08/2025 4:31 PM EDT Height 165.1 cm (5' 5 ) 03/08/2025 4:31 PM EDT Body Mass Index 30.29 03/08/2025 4:31 PM EDT Plan of Treatment Upcoming Encounters Date Type Department Care Team (Late st Contact Info) Description 10/11/2025 9:00 AM EST Office Visit Adult Medicine [facility] [address] [place] [phone] Nirmal Borjas MD [address] [place] [phone] 12/01/2025 3:45 PM EST Office Visit Bariatric Surgery - [place] [address] [phone] Zuleyka Rosado MD [address] [address] Health Maintenance Due Date Last Done Comments Hepatitis B Vaccines (1 of 3 - 19+ 3-dose series) 2000 Cervical Cancer Screening: Pap Smear 2002 HIV Screening 10/19/2022 Hepatitis C Screening 10/19/2022 Social Influencers of Health Screening 10/19/2022 COVID-19 Vaccine ( season) 2024 08/02/2021, 07/07/2021 Depression Screening 11/10/2024 Influenza Vaccine (#1) 2025 , 08/09/2022, 08/22/2021, Additional history exists Hypertension/CHF/CAD [...] age to complete this topic Meningococcal B Vaccine Aged Out No l onger eligible based on patient's age to complete this topic Pneumococcal Vaccine: Pediatrics (0 to 5 Years) and At-Risk Patients (6 to 49 Years) Aged Out No longer eligible based on patient's age to complete this topic RSV Immunization Patients Under 20 months Aged Out No longer eligible based on patient's age to complete this topic Varicella Vaccines Aged Out No longer eligible based on patient's age to complete this topic Procedures Procedure Name Priority Date/Time Associated Diagnosis Comments SCREENING MAMMOGRAPHY BI 2-VIEW BREAST INC CAD Routine 08/31/2024 4:41 PM EDT Encounter for general adult medical examination without abnormal findings from Last 3 Months or Most Recently Relevant to Health Maintenance Results * SCREENING MAMMOGRAPHY BI 2-VIEW BREAST INC [...] are composed of fatty and fibroglandular tissue. No suspicious mass, architectural distortion or suspicious calcifications are identified. IMPRESSION: : No mammographic evidence of malignancy. BIRADS 1-Negative; N. Breast density: The breasts have scattered areas of fibroglandular density. 5 year breast cancer risk assessment 0.5 % Lifetime breast cancer risk assessment 7.7 % Breast cancer risk category Low (<15%) Location: [facility], [address] [place] [address], [phone], [phone] Procedure Note Jennifer Goode MD - 10/04/2024 [...] Breast cancer risk category Low (<15%) Location: [facility], [address] [place] [address], [phone], [phone] Nimral Borjas MD IMG XR PROCEDURES Final Result from Last 3 Months or Most Recently Relevant to Health Maintenance Insurance [employer] Care Teams Media Liaison Officer Relationship Specialty Start Date End Date Nirmal Borjas MD [address] [place] [phone] PCP - General Internal Medicine 09/07/24
== END 2025-06-20 15:57 | disposition home or self-care (01) ==
LOC: HO.US 15:56
PROVIDERS: PCP Internal Medicine; Visit Provider Advanced Practice Midwife
DX: D21.9 Benign neoplasm of connective and other soft tissue, unspecified (principal)
CPT/HCPCS: 76856

== ENCOUNTER 2025-07-05 15:10 | Outpatient (AMB) | payer OTHER, SELFPAY ==
--- OUTSIDE RECORDS SUMMARY | 2024-08-16 16:30 | XMS_ITS | Encounter Summary ---
Author Organization [facility] Address [address] [place] [address] Care Team Providers Care Dryer And Washer Mechanic Name Role Phone Nirmal Borjas MD Primary Care Provider [phone] Encounter Details Date Type Department Care Team (Late st Contact Info) Description 08/16/2024 4:30 PM EDT Hospital Encounter TH HISTORIC ENCOUNTERS EASTERN CONVERSION ONLY Jerry Eisenberg PA [address] [place] [id number] Social History Tobacco Use Types Packs/Day Years Used Date Smoking Tobacco: Never Smokeless Tobacco: Never Alcohol Use Standard Drinks/Week Comments Yes 0 (1 standard drink = 0.6 oz pur e alcohol) Comments No Sex and Gender Information Value Date Recorded Sex Assigned at Female 12/02/2024 4:18 PM EST Legal Sex Female 9:10 PM EST Gender Identity Female 12/02/2024 4:18 PM EST Sexual Orientation Straight 12/02/2024 4: 18 PM EST documented as of this encounter Plan of Treatment Upcoming Encounters Date Type Department Care Team (Late Contact Info) Description 10/11/2025 9:00 AM EST Office Visit Adult Medicine [address] [phone] Nirmal Borjas MD [address] [place] [id number] 12/01/2025 3:45 PM EST Office Visit Bariatric Surgery - [address] [place] [address] Zuleyka Rosado MD [address] [place] [phone] documented as of this encounter Visit Diagnoses Not on filedocumented in this encounter Care Teams Dryer And Washer Mechanic Relationship Specialty Start Date End Date Nirmal Borjas MD PCP - General Internal Medicine 07/06/15 09/06/24 documented as of this encounter
--- NOTE | 2025-07-05 15:10 | MHC.OFFVIS ---
Intake Visit Reasons: TV Ultrasound follow up Intake Note: cell # [phone] Adhesive Bandage Making Operator: Adhesive Bandage Making Operator Present Allergies hydromorphone (From Dilaudid) Allergy (Intermediate, Verified 01/11/25 15:32) Rash oxycodone Allergy (Intermediate, Verified 01/11/25 15:32) Vomiting Is last menstrual period known: Yes Last menstrual period: 06/24/25 HPI Comments Details: Tele Health Visit Total time I personally spent on visit and management today: 22 minutes. Time spent included review of pertinent office notes in the electronic health record; review of laboratory and imaging results; review of personal family medical history; discussing diagnosis and plan of care with the patient; documenting the encounter in the EMR. Patient presents to discuss: Ultrasound follow up, history of large fibroid. Admits to heavy bleeding 2/5 days. She is due to have her bloo work at [employer] and we will send in her levels when available. She denies any pelvic pressure or discomfort. She has hoping for a future . [facility] Medical History Fibroid No known health problems Surgical History Hx of wisdom tooth extraction H/O gastric sleeve Family History Mother Diabetes HTN (hypertension) Maternal Aunt Breast cancer Social History Household Members: Family Household Members Other:: sister Housing: House Do you presently have visiting nurse or other home services: No Alcohol intake: never Patient Tobacco Use Status: Never used Tobacco service: No Current occupational status: employed Current occupation: [employer] Female Reproductive History Menstrual Date of last menstrual period: 06/24/25 Review of Systems Const All systems reviewed & are unremarkable except as noted in HPI and below Endo Reports no additional complaints Physical Exam Const General: cooperative, healthy appearing and no acute distress Psych Appearance: well kempt Attitude: cooperative Thought process: Normal thought process present Telehealth Telehealth Telehealth Platform: Looking for [employer] Location of provider rendering services: practice address Location of patient: address on file Patient Identification confirmed using: Name, : Yes Telehealth method: video Patient verbally consented to treatment: Yes Patient verbally consented to billing insurance company: Yes Patient informed of any privacy concerns related to visit: Yes Results Reviewed Results Reviewed: [address] [address] Ultrasound Report Signed Patient: Caterina García MR#: [id number] : 1980 Acct:[id number] Age/Sex: 44 / F ADM Date: 06/20/25 Loc: HO.US Attending Dr: Bonnie Abdi CNM Ordering Physician: Bonnie Abdi CNM Date of Service: 06/20/25 Procedure(s): US pelvic complete Accession Number(s): [id number] cc: Nirmal Borjas III, MD; Bonnie Abdi CNM~ EXAMINATION: US PELVIS HISTORY: D21.9 - Benign neoplasm of connective and other soft tissue, unspecified COMPARISON: Comparison is made with the prior examination dated 12/13/2024. TECHNIQUE: Transabdominal and endovaginal real-time 2D mota-scale ultrasound was performed. FINDINGS: Uterus: The uterus is normal in size, measuring 10.4 x 5.0 x 6.2 cm. Myometrium has a normal echotexture. Again seen is a right-sided fibroid measuring 2.3 x 1.7 x 2.5 cm (previously 3.3 x 3.2 x 2.5 cm), and a left fundal fibroid measuring 7.0 x 6.0 x 5.4 cm (previously 7.7 x 5.8 x 5.8 cm). Endometrium: The endometrial stripe measures 5 mm in thickness. Right ovary: The right ovary measures 2.7 x 1.1 x 1.5 cm. The right ovary is normal in size and echotexture. Left ovary: The left ovary measures 2.4 x 1.3 x 2.1 cm. The left ovary is normal in size and echotexture. Pelvic fluid: none. US/US pelvic complete IMPRESSION: Fibroid uterus as described, without significant change from the prior study. Electronically signed by: Lauro Kent MD 06/21/2025 07:09 AM EDT RP Dictated By: Lauro Kent MD Signed By: <Electronically signed by Lauro Kent MD in OV> 06/21/25 0709 DD/ 1605 TD/TT: 06/20/25 1612 Connection Worker: Assessment & Plan Assessment & Plan (1) Fibroid: Code(s): D21.9 - Benign neoplasm of connective and other soft tissue, unspecified Category: Medical Plan Discussed ultrasound findings-history of 7 cm fibroid IMPRESSION:. Fibroid uterus as described, without significant change from the prior study. Counseled regarding findings, future may be limited with large fibroid and AMA referral to be placed to [facility] for esl tutor MD consult and treatment options including myomectomy. Continue vitamins with folic acid, monitor menses, send in lab work copies. The patient expressed understanding and agreement with the plan of care. All of her questions and concerns were addressed to the best of my ability. This note is constructed using voice recognition software. While every effort has been made to ensure accuracy, format proofreader errors may have been included. . Orders: Referrals CARE CONSULTANT Referral D21.9 - Benign neoplasm of connective and other soft tissue, unspecified Medications: New PNV,calcium 46-lnhr-hkbuz acid 27 mg iron- 1 mg ( Vitamins Plus Low Iron) 1 tab PO DAILY 90 tabs 4RF Coding Level of Care Code Tele Est Pt Level 3 (71459) Diagnoses Fibroid D21.9
--- OUTSIDE RECORDS SUMMARY | 2025-07-05 16:06 | XMS_ITS | Clinical Summary ---
Author Organization 175 [facility] Address [address] [place] [address] Phone Care Team Providers Care Crankshaft Straightener Name Role Phone Nirmal Borjas MD Primary Care Provider [phone] Allergies Active Allergy Reactions Criticality Noted Date Comments Hydromorphone 09/22/2023 Oxycodone 09/22/2023 Medications acetaminophen (TYLENOL) 500 mg tablet Take 2 tablets (1,000 mg total) by mouth every 8 (eight) hours if needed for moderate pain, headaches, fever - temperature GREATER than 38 C (100.4 F) or mild pain. 05/25/20 24 Active cyanocobalamin , vitamin B-12, 1,000 mcg tablet, sublingual Place 1 Tablet under the tongue daily. 02/11/20 24 Active albuterol HFA (PROAIR HFA ; PROVENTIL HFA ; VENTOLIN HFA) 90 mcg/actuation inhaler 2 puffs. 03/20/20 23 Active SUMAtriptan (IMITREX) 50 mg tablet Take 1 tablet (50 mg total) by mouth. 03/20/20 23 Active buPROPion XL (WELLBUTRIN XL) 150 mg 24 hr tablet TAKE 1 TABLET BY MOUTH EVERY MORNING 90 tablet 1 11/30/19 25 Active Additional Information Patient not taking.Reported on 06/22/2025 phentermine 30 mg capsule Take 1 capsule (30 mg total) by mouth 1 (one) time each day before breakfast. Max Daily Amount: 30 mg 30 each 06/03/20 25 Active traZODone (DESYREL) 50 mg tablet TAKE 1 TABLET BY MOUTH EVERYDAY AT BEDTIME 90 tablet 1 06/07/20 25 Active ibuprofen (ADVIL,MOTRIN) 600 mg tablet Take 1 tablet (600 mg total) by mouth every 8 (eight) hours if needed for mild pain. 90 tablet 06/22/20 25 Active acyclovir (ZOVIRAX) 400 mg tablet TAKE 1 TABLET BY MOUTH THREE TIMES A DAY 270 tablet 1 06/24/20 25 Active traZODone (DESYREL) 50 mg tablet Take 1 tablet (50 mg total) by mouth. 02/06/20 24 025 Discontinued acyclovir (ZOVIRAX) 400 mg tablet Take 1 tablet (400 mg total) by mouth 3 (three) times a day. 02/06/20 24 025 Discontinued ibuprofen (ADVIL,MOTRIN) 800 mg tablet Take 1 tablet (800 mg total) by mouth. 12/25/19 21 025 Discontinued acyclovir (ZOVIRAX) 400 mg tablet TAKE 1 TABLET BY MOUTH THREE TIMES A DAY 45 tablet 1 06/07/20 25 025 Discontinued Active Problems Problem Noted Date Diagnosed Date Primary hypertension 09/27/2024 History of COVID-19 03/23/2021 Acute thrombosis of right basilic vein Elevated glucose 12/25/2020 Hypertriglyceridemia 12/25/2020 Insomnia 12/25/2020 Obstructive sleep apnea 02/27/2018 Overview (08/16/2024): [facility] [place] Home Polysomnogram: Date 02/23/2018; AHI 5, Unclassified apneas 0; Obstructive apneas 1; Central apneas 0; Mixed apneas 0; hypopneas 22; average oxygen saturation 96% (lowest 90% without saturations <88% for 5% or more of study) - Obstructive Sleep Apnea - mild; mostly hypopneas; without sleep related hypoventilation by 2018 home polysomnogram. Lumbar disc herniation with radiculopathy 2016 Overview (08/16/2024): 2004 [place] MRI: L4/L5 and L5/S1 with impingement of left S1 nerve root Osteoarthritis of knee 12/27/2016 Overview (08/16/2024): Right: old injury in past Migraine without aura 08/15/2016 Overview (08/16/2024): Dr. Carson Encounters Date Type Department Care Team Description 06/22/2025 4:07 PM EDT - 06/22/2025 11:59 PM EDT Hospital Encounter [facility] [address] [place] [phone] Neck pain Discharge Disposition: Home or Self Care 06/22/2025 4:06 PM EDT - 06/22/2025 11:59 PM EDT Hospital Encounter [address] [phone] Acute pain of left knee Discharge Disposition: Home or Self Care 06/22/2025 3:30 PM EDT Office Visit Adult Medicine [address] [phone] Muriel Newell NP Fall, initial encounter (Primary Dx); Neck pain; Acute pain of left shoulder; Acute pain of left knee from Last 3 Months Immunizations Name Administration [...] Date Smoking Tobacco: Never Smokeless Tobacco: Never Tobacco Cessation:Counseling Given: Not Answered Alcohol Use Standard Drinks/Week Comments Yes 0 [...] Sign Reading Time Taken Comments Blood Pressure 118/68 06/22/2025 3:38 PM EDT Pulse 73 06/22/2025 3:38 PM EDT Temperature 36.2 C (97.2 F) 06/22/2025 3:38 PM EDT Respiratory Rate 16 06/22/2025 3:38 PM EDT Oxygen Saturation 99% 06/22/2025 3:38 PM EDT Inhaled Oxygen Concentration - - Weight 86.9 kg (191 lb 9.6 oz) 06/22/2025 3:38 P M EDT Height 165.1 cm (5' 5 ) 06/22/2025 3:38 PM EDT Body Mass Index 31.88 06/22/2025 3:38 PM EDT Plan of Treatment Upcoming Encounters Date Type Department Care Team (Late st Contact Info) Description 10/11/2025 9:00 AM EST Office Visit Adult Medicine [address] [phone] Nirmal Borjas MD [address] [place] [phone] 12/01/2025 3:45 PM EST Office Visit Bariatric Surgery - [address] [phone] Zuleyka Rosado MD Formerly named [facility] [place] [phone] Health Maintenance Due Date Last Done Comments [...] Procedure Name Priority Date/Time Associated Diagnosis Comments XR CERVICAL SPINE 4-5 VIEWS Routine 06/22/2025 4:25 PM EDT Neck pain XR KNEE 4+ VIEWS LEFT Routine 06/22/2025 4:24 PM EDT Acute pain of left knee SCREENING MAMMOGRAPHY BI 2-VIEW BREAST INC CAD Routine 08/31/2024 4:41 PM EDT Encounter for general adult medical examination without abnormal findings from Last 3 Months or Most Recently Relevant to Health Maintenance Results * XR Cervical Spine 4-5 Views (06/22/2025 4:25 PM EDT) Anatomical Region Laterality Modality Spine, C-spine Radiographic Rubia ging 06/22/2025 6:21 PM EDT Addenda Addendum by Faith Valente MD on 06/29/2025 9:26 AM EDT Addendum: There is voice recognition error in the first line of the IMPRESSION. This should read; No degenerative changes. -------- ADDENDUM -------- Dictated By: Faith Valente Dictated Date: 06/29/2025 09:24 ET Assigned Physician: Faith Valente Reviewed and Electronically Signed By: Faith Valente Signed Date: 06/29/2025 09:26 ET Workstation ID: [id number] Transcribed By: Self Edit Transcribed Date: 06/29/2025 09:24 ET Impressions 06/22/2025 6:23 PM EDT Degenerative changes. No acute findings seen. However, if there is high clinical suspicion for acute fracture, then CT would be suggested. -------- FINAL REPORT -------- Dictated By: Faith Valente Dictated Date: 06/22/2025 18:21 ET Assigned Physician: Faith Valente Reviewed and Electronically Signed By: Faith Valente Signed Date: 06/22/2025 18:23 ET Workstation ID: [id number] Transcribed By: Self Edit Transcribed Date: 06/22/2025 18:21 ET Narrative 06/22/2025 6:23 PM EDT CERVICAL SPINE, 5 VIEWS HISTORY: Pain. Prior: Cervical spine 10/14/2017. FINDINGS: There is slight reversal the normal lordotic curve, not significantly changed.. No fracture or dislocation is seen. The paravertebral soft tissues are unremarkable. The dens is not well visualized due to overlap of the patient's teeth. The C1 lateral masses symmetrically positioned. No degenerative changes are seen. Procedure Note Faith Valente MD - 06/22/2025 CERVICAL SPINE, 5 VIEWS HISTORY: Pain. Prior: Cervical spine 10/14/2017. FINDINGS: There is slight reversal the normal lordotic curve, not significantlychanged.. No fracture or dislocation is seen. The paravertebral soft tissues areunremarkable. The dens is not well visualized due to overlap of thepatient's teeth. The C1 lateral masses symmetrically positioned. Nodegenerative changes are seen. IMPRESSION: Degenerative changes. No acute findings seen. However, if there is highclinical suspicion for acute fracture, then CT would be suggested. -------- FINAL REPORT -------- Dictated By: Faith Valente Dictated Date: 06/22/2025 18:21 ET Assigned Physician: aFith Valente Reviewed and Electronically Signed By: Faith Valente Signed Date: 06/22/2025 18:23 ET Workstation ID: [id number] Transcribed By: Self Edit Transcribed Date: 06/22/2025 18:21 ET us Muriel Newell SCIENTIFIC DATABASE CURATOR IMG XR PROCEDURES Edited Resu lt - Final * XR Knee 4+ Views Left (06/22/2025 4:24 PM EDT) Anatomical Region Laterality Modality Lower Extremities, Knee Left Radiogra [facility] 06/22/2025 6:23 PM EDT Impressions 06/22/2025 6:25 PM EDT Degenerative changes as described.. No acute findings. -------- FINAL REPORT -------- Dictated By: Faith Valente Dictated Date: 06/22/2025 18:23 ET Assigned Physician: Faith Valente Reviewed and Electronically Signed By: Faith Valente Signed Date: 06/22/2025 18:25 ET Workstation ID: [id number] Transcribed By: Self Edit Transcribed Date: 06/22/2025 18:23 ET Narrative 06/22/2025 6:25 PM EDT LEFT KNEE VIEWS: 4-standing. HISTORY: Pain. FINDINGS: There is narrowing of the medial femoral tibial compartment. There is minor spurring of the lateral margin of the patella bilaterally. No fracture or malalignment is seen. Soft tissues are normal. The patellae are normally positioned on the Merchant view. No joint effusion is seen. There is moderate spurring about the patellofemoral compartment of the right knee on the patellar view. Procedure Note Faith Valente MD - 06/22/2025 LEFT KNEE VIEWS: 4-standing. HISTORY: Pain. FINDINGS: There is narrowing of the medial femoral tibial compartment.There is minor spurring of the lateral margin of the patellabilaterally. No fracture or malalignment is seen. Soft tissues are normal. The patellaeare normally positioned on the Merchant view. No joint effusion is seen. There is moderate spurring about the patellofemoral compartment of theright knee on the patellar view. IMPRESSION: Degenerative changes as described.. No acute findings. -------- FINAL REPORT -------- Dictated By: Faith Valente Dictated Date: 06/22/2025 18:23 ET Assigned Physician: Faith Valente Reviewed and Electronically Signed By: Faith Valente Signed Date: 06/22/2025 18:25 ET Workstation ID: [id number] Transcribed By: Self Edit Transcribed Date: 06/22/2025 18:23 ET us Muriel Newell SCIENTIFIC DATABASE CURATOR IMG XR PROCEDURES Final Resul t * SCREENING MAMMOGRAPHY BI 2-VIEW BREAST INC [...] risk category Low (<15%) Location: [facility], [address] [place] [address], [phone], [phone] Procedure Note Jennifer Goode MD - 10/04/2024 [...] risk category Low (<15%) Location: [facility], [address] [place] [address], [address], [phone] Nirmal Borjas MD IMG XR PROCEDURES Final Result from Last 3 Months or Most Recently Relevant to Health Maintenance Insurance [employer] Care Teams Crankshaft Straightener Relationship Specialty Start Date End Date Nirmal Borjas MD [address] [place] [phone] PCP - General Internal Medicine 09/07/24
--- OUTSIDE RECORDS SUMMARY | 2025-07-05 16:06 | XMS_ITS | Encounter Summary ---
Author Organization [facility] Address [address] [place] [address] Care Team Providers Care Washing Machine Assembler Name Role Phone Nirmal Borjas MD Primary Care Provider Encounter Details Date Type Department Care Team (Late st Contact Info) Description 10/15/2024 Lab Requisition [facility] - Main Lab [address] [facility] [place] [id number] Esvin Peter MD [address] [place] [id number] Other microscopic hematuria Social History Tobacco Use [...] 9:00 AM EST Office Visit Adult Medicine [address] [phone] Nirmal Borjas MD [address] [place] [phone] 12/01/2025 3:45 PM EST Office Visit Bariatric Surgery - [place] [address] [facility] [address] [place] [address] Zuleyka Rosado MD [address] [place] [address] documented as of this encounter Procedures Procedure Name Priority Date/Time Associated Diagnosis Comments CULTURE URINE Routine 10/15/2024 5:38 PM EST Other microscopic hematuria documented in this encounter Results * Culture urine (10/15/2024 5:38 PM EST) Culture, Urine >100,000 CFU/mL Mixed urogenital rush, no uropathogens present. Suggest repeat specimen if clinically indicated. 10/17/2024 10:41 AM EST [facility] Urine Urine specimen obtained by clean catch procedure / Unknown 10/15/2024 5:38 PM EST 10/15/2024 5:40 PM EST us Esvin Peter MD LAB MICROBIOLOGY - GENERAL ORDER DOMINIK Final Result [facility] [address] [place] [address], documented in this encounter Visit Diagnoses Diagnosis Other microscopic hematuria documented in this encounter Care Teams Washing Machine Assembler Relationship Specialty Start Date End Date Nirmal Borjas MD [address] [place] [id number] PCP - General Internal Medicine 09/07/24 documented as of this encounter
== END 2025-07-05 15:58 | disposition home or self-care (01) ==
LOC: HO.HWS 15:10
PROVIDERS: PCP Internal Medicine; Visit Provider Advanced Practice Midwife
DX: D21.9 Benign neoplasm of connective and other soft tissue, unspecified (principal)
CPT/HCPCS: 98013